=== PATIENT | female | born 1965 | race Caucasian/White ===

== ENCOUNTER 2023-09-08 14:18 | Outpatient (OUT) | payer OTHER, SELFPAY ==
--- NOTE | 2023-09-08 14:20 | US_ITS ---
The [address] [address] Patient Name: ALYSON HERMAN MRN: [id number] date: 1965 Sex: F Assigned Patient Location: [facility] Current Patient Location: [facility] Accession/Order Number: [id number] Exam Date: 09/08/2023 14:20 Report Date: 09/08/2023 15:23 At the request of: SONIA BARDALES Procedure: US pelvis transvaginal EXAMINATION: US pelvis transvaginal HISTORY: POST MENOPAUSAL BLEEDING, FIBROID COMPARISON: No relevant comparison available. TECHNIQUE: Transabdominal and/or transvaginal sonographic examination was performed as indicated by examination type. FINDINGS: UTERUS: Enlarged heterogeneous uterus with suspected mass/leiomyoma involving the majority of the uterus, approximately 11 x 9 x 7 cm. Uterus size: 15.4 x 6.9 x 10.5 cm ENDOMETRIUM: Hypoechoic heterogeneous area may represent endometrium or part of the uterine mass, approximately 28 mm in thickness. RIGHT OVARY: Not seen. LEFT OVARY: Not seen. CUL-DE-SAC: Unremarkable. No significant free fluid. BLADDER: Unremarkable. OTHER: None. US/US pelvis transvaginal IMPRESSION: 1. Enlarged heterogeneous uterus which appears to contain a large mass versus leiomyoma. It is uncertain whether the endometrium is completely obscured or there is abnormal endometrial thickening ([address] abdomen and pelvis with IV and oral contrast for further evaluation. Electronically authenticated by: DIEGO TYLER Date: 09/08/2023 15:23
== END 2023-09-08 14:19 | disposition home or self-care (01) ==
LOC: NOMS 14:19
PROVIDERS: PCP Family Medicine; Visit Provider Obstetrics & Gynecology
DX: N95.0 Postmenopausal bleeding (principal); D25.9 Leiomyoma of uterus, unspecified
CPT/HCPCS: 76830

== ENCOUNTER 2023-09-19 08:44 | Outpatient (OUT) | payer OTHER, SELFPAY ==
--- NOTE | 2023-09-19 08:50 | ECG_ITS ---
The [facility] Test Date: 2023-09-19 Pat Name: Samara Boyer Department: Room: - Gender: Female Differential Specialist: : 1965 Requested By: SONIA BARDALES Order Number: [id number] Reading MD: OMAR GARCIA Measurements Intervals [place] Rate: 63 P: 50 CO: 193 QRS: -18 QRSD: 86 T: -4 QT: 388 QTc: 398 Interpretive Statements SINUS RHYTHM No previous ECG available for comparison Electronically Signed On 09-20-2023 7:45:42 EST by OMAR GARCIA
--- OUTSIDE RECORDS SUMMARY | 2023-09-19 08:50 | XMS_ITS | CCD ---
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 Name Role Phone Nadir Albarado II Unavailable MD Nadir Albarado II Attending Provider NO FAMILY, PHYSICIAN Primary Care Provider Unava ilable Tina Pascual Unavailable Kaylen Gómez Unavailable Belkis Mejia Unavailable Jesu Cano Unavailable Gladis Fortune MD Primary Care Provider MD Nadir Albarado II Attending Provider MD Gladis Fortune Primary Care Provider [phone] Jesu Cano Admitting Unavailable Jesu Cano Attending Unavailable Gladis Fortune Primary [facility] Unavailable Nadir Albarado II Admitting UnavailNadir Arvizu II Attending [facility]availGladis [facility] Un[facility] GLADIS FORTUNE Attending Unavailable GLADIS FORTUNE Referring Unavailable ULISES JACOBSEN Attending Unavailable SONIA BENDER Attending Unavailable GLADIS FORTUNE Attending Unavailable Allergies Allergy Classification Reported Allergen(s) Allergy Type Date of Onset Reaction(s) Facility (5 sources) tiZANidine Drug Allergy 01-15-2023 Swelling [facility] Medications Current Medications Medication Drug Class(es) Dates Sig (Normalized) Sig (Original) 0.5 ML tirzepatide 5 MG/ML Auto-Injector [Mounjaro] (10 sources) Start: 01-30-2023 Mounjaro 2.5 MG/0.5ML as directed Subcutaneous weekly for 28 days Jan, Active acetaminophen 500 mg oral capsule (20 sources) Start: 09-02-2023 take 1 capsule by mouth every six hours as needed Acetaminophen Active 1 CAP PO Every 6 hours September 02, 2023 12:00am FreeTextSi capsule as needed Orally every 6 hrs; Note: Source Status: Taking; Provider: Rachael Nails ( ) take 1 capsule by mouth every si x hours Acetaminophen 500 MG 1 capsule as needed Orally every 6 hrs Active [id number] actuat albuterol 0.09 mg/actuat metered dose inhaler (19 sources) beta2-Adrenergic Agonist Start: 07-16-2022 take 2 puff(s) by inhalation every four hours as needed Albuterol Sulfate HFA 108 (90 Base) MCG/ACT 2 puffs as needed Inhalation every 4 hrs Jun, Active Start: 07-16-2022 take 2 puff(s) by in halation every four hours as needed Albuterol Sulfate HFA 108 (90 Base) MCG/ACT 2 puffs as needed Inhalation every 4 hrs Jun, Active Start: 07-16-2022 take 2 puff(s) by in halation every four hours as needed Albuterol Sulfate HFA 108 (90 Base) MCG/ACT 2 puffs as needed Inhalation every 4 hrs Jun, Active brimonidine tartrate 2 mg/ml ophthalmic solution (1 source) alpha-Adrenergic Agonist Start: 09-02-2023 take 1 drop(s) into the eye(s) every eight hours Brimonidine Active 1 DROPS EYE-BOTH Every 8 hours September 02, 2023 12:00am cyclobenzaprine hydrochloride 10 mg oral tablet (2 sources) Muscle Relaxant take 1 tablet by mouth every twenty-four hours Cyclobenzaprine HCl 10 MG 1 tablet at bedtime as needed Orally Once a day Active 24 hr diclofenac sodium 100 mg extended release oral tablet (20 sources) Nonsteroidal Anti-inflammatory Drug Start: 09-02-2023 take 100 mg by mouth once daily Diclofenac Sodium Active 100 MG PO Daily September 02, 2023 12:00am Start: 01-13-2023 diclofenac sod ium 1 % gel Diclofenac Sodiu m 1 % apply 1-2 grams to affected area Externally Four times a day for 30 days Active Diclofenac Sodiu m 1 % APPLY 1 TO 2 GRAMS TO AFFECTED AREA 4 TO 5 TIMES DAILY for 30 Active Diclofenac Activ e Voltaren 1 % Patrick ly 1-2 grams to the affected area Externally 4-5x's a day for 30 days Active Fish Oils (20 sources) Fish Oil Active hydroCHLOROthiazide 25 mg / triamterene 37.5 mg oral capsule (6 sources) Potassium-sparing Diuretic, Thiazide Diuretic Start: take 1 capsule by mouth once daily Triamterene-Hydr ochlorothiazid Active 1 CAP PO Daily September 02, 2023 12:00am Start: 04-09-2023 End: 10-06-2023 take 1 tablet by mouth in the morning triamterene-hydrochlorothiazide (Maxzide -25) 37.5-25 MG tablet Indications: Essential hypertension (CMS/HCC) Take 1 tablet by mouth in the morning. 90 tablet 1 04/09/2023 10/06/2023 Active ibuprofen 600 mg oral tablet (2 sources) Nonsteroidal Anti-inflammatory Drug take 1 tablet by mouth three times daily at mealtime as needed Ibuprofen 600 MG 1 tablet with food or milk as needed Orally Three times a day Active latanoprost 0.05 mg/ml ophthalmic solution (20 sources) Prostaglandin Analog take 1 drop(s) into the eye(s) once daily at bedtime latanoprost (Xalatan) 0.005 % ophthalmic solution INSTILL 1 DROP IN BOTH EYES EVERY DAY AT BEDTIME 0 Active Latanoprost 0.00 5 % Ophthalmic for 25 Days Glaucoma Active Latanoprost 0.00 5 % Ophthalmic for 25 Days Glaucoma Active levothyroxine sodium 0.1 mg oral tablet (20 sources) l-Thyroxine Start: 07-01-2023 take 1 tablet by mouth before mealtime levothyroxine (Synthroid, Levoxyl) 100 MCG tablet Indications: Hypothyroidism, unspecified type (CMS/HCC) TAKE 1 TABLET BY MOUTH IN THE MORNING BEFORE MEALS 90 tablet 1 07/01/2023 Active take 1 tablet by zuly th once daily in the morning Levothyroxine Sodium 100 MCG 1 tablet in the morning on an empty stomach Orally Once a day Active lisinopril 10 mg oral tablet (20 sources) Angiotensin Converting Enzyme Inhibitor Start: 04-09-2023 End: 10-06-2023 take 1 tablet by mouth in the morning lisinopril 10 MG tablet Indications: Essential hypertension (CMS/HCC) Take 1 tablet (10 mg) by mouth in the morning. 90 tablet 1 04/09/2023 10/06/2023 Active loratadine 10 mg oral tablet (20 sources) Start: 03-31-2023 take 1 tablet by mouth once daily as needed loratadine (Claritin) 10 MG tablet Indications: Allergic rhinitis due to other allergic trigger, unspecified seasonality TAKE 1 TABLET BY MOUTH EVERY DAY NEEDED 90 tablet 3 03/31/2023 Active meclofenamate 100 mg oral capsule (5 sources) Start: 09-02-2023 take 100 mg by mouth every six hours Meclofenamate Active 100 MG PO Every 6 hours September 02, 2023 12:00am Start: 08-27-2023 End: 09-03-2023 take 1 capsule by mouth every eight hours meclofenamate (Meclomen) 100 MG capsule Indications: DUB (dysfunctional uterine bleeding) Take 1 capsule (100 mg) by mouth every 8 (eight) hours for 7 days Stop the medication when bleeding stops. 21 capsule 0 08/27/2023 09/03/2023 Active megestrol acetate 20 mg oral tablet (5 sources) Progestin Start: 08-13-2023 take 1 tablet by mouth twice daily, then take 2 tablets by mouth twice daily, then take 1 tablet by mouth once daily megestrol (Megace) 20 MG tablet Indications: DUB (dysfunctional uterine bleeding) Take 1 tablet (20 mg total) by mouth 2 (two) times a day. Take 2 tablets BID x3 days and then 1 tab po daily 30 tablet 0 08/13/2023 Active meloxicam 15 mg oral tablet (20 sources) Nonsteroidal Anti-inflammatory Drug Start: 03-12-2022 take 1 tablet by mouth once daily Meloxicam Active 15 MG PO Daily September 02, 2023 12:00am FreeTextSi tablet Orally Once a day; Note: Source Status: Taking; Refills: 3; Qty: 30 Tablet; Provider: Per Fragoso 24 hr metFORMIN hydrochloride 500 mg extended release oral tablet (20 sources) Biguanide Start: 09-02-2023 take 1 tablet by mouth once daily at mealtime Metformin Active 500 MG PO Daily 90 September 02, 2023 2:48pm FreeTextSig: TAKE 1 TABLET BY MOUTH EVERY EVENING WITH A MEAL; Note: Source Status: Start; Refills: 0; Qty: 90 Tablet; Provider: Rachael Nails ( ) Start: 09-02-2023 End: 09-02-2023 take 1 tablet by mouth once daily at mealtime Metformin Discontinued 500 MG PO Daily September 02, 2023 2:47pm September 02, 2023 2:49pm FreeTextSig: TAKE 1 TABLET BY MOUTH EVERY EVENING WITH A MEAL; Note: Source Status: Start; Refills: 0; Qty: 90 Tablet; Provider: Rachael Nails ( ) Start: 11-20-2022 take 1 tablet by zuly th every twenty-four hours at mealtime metFORMIN XR (Glucophage-XR) 500 MG 24 hr tablet Take 500 mg by mouth in the evening. Take with meals. 0 11/20/2022 Active metFORMIN HCl ER 500 MG TAKE 1 TABLET BY MOUTH EVERY EVENING WITH A MEAL Orally Once a day for 90 days Active 24 hr metoprolol succinate 25 mg extended release oral tablet (20 sources) beta-Adrenergic Seun Start: 09-02-2023 take 25 mg by mouth once daily Metoprolol Succinate Active 25 MG PO Daily September 02, 2023 12:00am Start: 12-31-2022 End: 12-31-2023 take 1 tablet by mouth every twenty-four hours at bedtime metoprolol succinate XL (Toprol-XL) 25 MG 24 hr tablet Indications: Benign essential hypertension (CMS/HCC) Take 1 tablet (25 mg) by mouth at bedtime. 90 tablet 3 12/31/2022 12/31/2023 Active Metoprolol Succi xiomy Active mounjaro 2.5 mg/0.5ml solution pen-injector (1 source) Start: 01-30-2023 Mounjaro 2.5 MG/0.5ML as directed Subcutaneous weekly Jan, Active [place] 6-Vrx-Sgr-Fish Oil (Fish Oil) 1,000 mg (120 mg-180 mg) capsule (1 source) Start: 09-02-2023 take 1 capsule by mouth once daily [place] 6-Bvu-Jzo-Fish Oil (Fish Oil) 1,000 mg (120 mg-180 mg) capsule Active 1 CAP PO Daily September 02, 2023 12:00am semaglutide 3 mg oral tablet (3 sources) Start: 10-30-2022 Rybelsus 3 MG as directed Orally Oct, Active Tirzepatide (1 source) Start: 09-02-2023 inject 1 mg by subcutaneous injection every week Tirzepatide (Mounjaro) 2.5 mg/0.5 mL pen injector Active MG SUBCUT every week September 02, 2023 12:00am FreeTextSig: as directed Subcutaneous weekly; Note: Source Status: Continue; Provider: Rachael Alvarado Tirzepatide (Mounjaro) 2.5 MG/0.5ML solution pen-injector (5 sources) Tirzepatide (Mounjaro) 2.5 MG/0.5ML solution pen-injector Inject 2.5 mg under the skin every 7 (seven) days 0 Active Triamterene (19 sources) Potassium-spar ing Diuretic Triamterene Active Completed/Discontinued Medications Medication Drug Class(es) Dates Sig (Normalized) Sig (Original) methylPREDNISolone 4 mg oral tablet (5 sources) Corticosteroid Start: 2 methylPREDNISolone 4 MG as directed Orally Once a day for 6 days Jun, Not-Taking triamcinolone acetonide 40 mg/ml injectable suspension (20 sources) Corticosteroid Start: 2 Kenalog-40 Apr, 120 mg Problems Active Problems Problem Classification Problem Date Documented Date Episodic/Chronic Adjustment disorders (5 sources) Grief finding; Translations: [Adjustment disorder with depressed mood] Onset: 01-08-2023 01-08-2023 Chronic Administrative/social admission (1 source) Persons encountering health services in other specified circumstances Episodic Benign neoplasm of uterus (2 sources) Uterine leiomyoma; Translations: [Leiomyoma of uterus, unspecified] 09-02-2023 Episodic Chronic obstructive pulmonary disease and bronchiectasis (1 source) Bronchitis, not specified as acute or chronic Episodic Coma; stupor; and brain damage (20 sources) Excessive daytime sleepiness - normal night sleep; Translations: [Somnolence] Episodic Diabetes mellitus without complication (10 sources) Prediabetes; Translations: [Impaired fasting glucose] Episodic Disorders of lipid metabolism (20 sources) Pure hypercholesterolemia; Translations: [Pure hypercholesterolemia, unspecified] Onset: 01-08-2023 Chronic Diverticulosis and diverticulitis (5 sources) Diverticular disease; Translations: [Diverticulosis of intestine, part unspecified, without perforation or abscess without bleeding] Onset: 01-08-2023 01-08-2023 Chronic Essential hypertension (6 sources) Essential hypertension; Translations: [Essential (primary) hypertension] Onset: 01-08-2023 01-08-2023 Chronic Headache; including migraine (5 sources) Migraine; Translations: [Migraine, unspecified, not intractable, without status migrainosus] Onset: 01-08-2023 01-08-2023 Chronic Joint disorders and dislocations; trauma-related (5 sources) Derangement of right knee; Translations: [Unspecified internal derangement of right knee] Onset: 01-08-2023 01-08-2023 Chronic Menopausal disorders (2 sources) Postmenopausal bleeding; Translations: [Postmenopausal bleeding] 09-02-2023 Chronic Osteoarthritis (20 sources) Osteoarthritis of right knee joint; Translations: [Unilateral primary osteoarthritis, right knee] Onset: 09-02-2023 Chronic Other aftercare (5 sources) 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 Episodic Other circulatory disease (2 sources) Elevated blood-pressure reading, without diagnosis of hypertension Episodic Other diseases of kidney and ureters (2 sources) Disorder of kidney and ureter, unspecified Episodic Other female genital disorders (4 sources) Abnormal uterine bleeding; Translations: [Other specified abnormal uterine and vaginal bleeding] 08-27-2023 Chronic Other non-traumatic joint disorders (2 sources) Pain in right knee Onset: 03-12-2022 Resolved: 03-12-2022 Episodic Other nutritional; endocrine; and metabolic disorders (20 sources) Obesity; Translations: [Obesity, unspecified] 09-02-2023 Chronic Other nutritional; endocrine; and metabolic disorders (20 sources) Morbid obesity; Translations: [Morbid (severe) obesity due to excess calories] Onset: 01-08-2023 01-08-2023 Chronic Other nutritional; endocrine; and metabolic disorders (6 sources) Obesity, unspecified Chronic Other nutritional; endocrine; and metabolic disorders (2 sources) Morbid (severe) obesity due to excess calories Chronic Other nutritional; endocrine; and metabolic disorders (10 sources) Body mass index (BMI) 45.0-49.9, adult Chronic Other nutritional; endocrine; and metabolic disorders (20 sources) Body mass index 40+ - severely obese; Translations: [Body mass index (BMI) 45.0-49.9, adult] 09-02-2023 Chronic Other nutritional; endocrine; and metabolic disorders (5 sources) Disorder of carbohydrate metabolism; Translations: [Other disorders of intestinal carbohydrate absorption] Onset: 01-08-2023 01-08-2023 Chronic Other nutritional; endocrine; and metabolic disorders (2 sources) Body mass index (BMI) 40.0-44.9, adult; Translations: [Body Mass Index 40.0-44.9, adult] Onset: 09-02-2023 09-02-2023 Chronic Other upper respiratory disease (5 sources) Allergic rhinitis; Translations: [Allergic rhinitis, unspecified] Onset: 01-08-2023 01-08-2023 Chronic Other upper respiratory disease (1 source) Seasonal allergy; Translations: [Other seasonal allergic rhinitis] 09-02-2023 Chronic Spondylosis; intervertebral disc disorders; other back problems (5 sources) Inflammation of sacroiliac joint; Translations: [Sacroiliitis, not elsewhere classified] Onset: 01-08-2023 01-08-2023 Chronic Thyroid disorders (6 sources) Hypothyroidism; Translations: [Hypothyroidism, unspecified] Onset: 01-08-2023 01-08-2023 Chronic Unclassified (1 source) Prediabetes; Translations: [Prediabetes] Onset: 09-02-2023 Unclassified (1 source) Dietary counseling and surveillance; Translations: [Dietary counseling and surveillance] Onset: 07-07-2023 Past or Other Problems Problem Classification Problem Date Documented Date Episodic/Chronic Other nervous system disorders (5 sources) Abnormal gait; Translations: [Unspecified abnormalities of gait and mobility] Onset: 01-08-2023 01-08-2023 Episodic Other nervous system disorders (5 sources) Poor balance; Translations: [Other abnormalities of gait and mobility] Onset: 01-08-2023 01-08-2023 Episodic Unclassified (1 source) Cough R05.9 Viral infection (1 source) COVID-19 Results Test Name Value Interpretation Reference Range Facility US PELVIC COMPLETE W/ TVon 0 07-22-2023 US PELVIC COMPLETE W/ TV EXAMINATION: US PELVIC COMPLETE W/ TV HISTORY: Abnormal uterine bleeding. Postmenopausal bleeding. TECHNIQUE: Transabdominal and transvaginal ultrasound evaluation of the pelvis was performed. COMPARISON: None available FINDINGS: The examination is limited secondary to the patient's body habitus, inability to fill bladder, and bowel gas. The uterus measures 11.9 x 6.9 x 4.3 cm. There there are 2 areas of altered echogenicity within the uterus measuring 2.6 x 2.5 x 1.4 cm in 9.5 x 7.7 x 6.6 cm that likely represent fibroids. The endometrium is not visualized. Neither ovary is visualized. No definitive adnexal mass. There is no significant free fluid in the pelvis. IMPRESSION: Findings of the uterus most likely representing fibroids. Endometrium is nonvisualized. Neither ovary is visualized. ELECTRONICALLY SIGNED BY: Nadir Dove, DO Normal Not Available COVID/FLU/RSV RT-PCRon 07-16 SARS-CoV-2 (COVID-19) RNA [place]+probe Ql (Unsp spec) Positive [facility] Other COVID/FLU/RSV RT-PCR Negative [facility] Other CT Knee Right w/o Contraston 12-12-2021 CT Knee Right w/o Contrast HISTORY: Right knee sprain for 2 weeks. Unable to weight-bear. Tibial plateau fracture. TECHNIQUE: Multiple contiguous axial images were obtained of the right knee without contrast . Multiplanar reformats were obtained. All CT scans at this facility use dose modulation, iterative reconstruction, and/or weight based dosing when appropriate to reduce radiation dose to as low as reasonably achievable. COMPARISON: Radiographs of the knee 12/10/2021 FINDINGS: No acute fracture. Tricompartmental osteoarthritis most significantly involving the lateral and patellofemoral compartments where the osteoarthritis is advanced. Lateral patellar subluxation. There are a few small loose bodies, the largest which measures approximately 6 mm and is located along the anterior margin of the anterior tibial plateau. The visualized myotendinous structures appear intact by CT. IMPRESSION: No acute fracture. Advanced knee osteoarthritis. Report reported and signed by NADIR DOVE on 12/13/2021 1358 Normal [facility] XR Knee Complete Right*on XR Knee Complete Right* HISTORY: Twisting injury. Difficulty straightening the knee. Severe pain. COMPARISON: 03/15/2021 RESULT: No acute fracture. No dislocation. Joint compartment osteoarthritis with large osteophytes. Severe patellofemoral narrowing. Probably severe lateral compartment narrowing also. Possible joint body anteriorly, unchanged. Small joint effusion. Soft tissues unremarkable. No other significant abnormality. IMPRESSION: No acute osseous findings. Osteoarthritis, advanced in the patellofemoral and lateral compartments, similar to prior. Report reported and signed by Hitesh Navarro on 12/10/2021 1340 Normal [facility] Comprehensive Metabolic P[facility] 11-30-2021 Albumin [Mass/Vol] 4.2 g/dL Normal 3.6-5.1 [facility] Comment on above: Performed By: #### F T4, LIPD, TSH, CMP #### [facility] [address], [place] [id number] Albumin/Globulin [Mass ratio] 1.6 {ratio} Normal 1.0-2.5 [facility] Comment on above: Performed By: #### F T4, LIPD, TSH, CMP #### [facility] [address], [place] [id number] ALP [Catalytic activity/Vol] 72 U/L Normal 35-119 [facility] Comment on above: Performed By: #### F T4, LIPD, TSH, CMP #### [facility] [address], [place] [id number] ALT [Catalytic activity/Vol] 9 U/L Normal 6-33 [facility] Comment on above: Result Comment: 06/20 Female reference range changed. Performed By: #### F T4, LIPD, TSH, CMP #### [facility] [address], [place] [id number] Anion gap [Moles/Vol] 16 mmol/L Normal 12-20 [facility] Comment on above: Result Comment: Effe ctive 07/26/2019 reference range changed. Performed By: #### F T4, LIPD, TSH, CMP #### [facility] [address], [place] [id number] AST [Catalytic activity/Vol] 12 U/L Normal 9-34 [facility] Comment on above: Performed By: #### F T4, LIPD, TSH, CMP #### [facility] [address], [place] [id number] BUN/CREA 21 Ratio Normal 6-22 [facility] Comment on above: Performed By: #### F T4, LIPD, TSH, CMP #### [facility] [address], [place] [id number] Calcium [Mass/Vol] 9.4 mg/dL Normal 8.6-10.2 [facility] Comment on above: Performed By: #### F T4, LIPD, TSH, CMP #### [facility] [address], [place] [id number] Chloride [Moles/Vol] 104 mmol/L Normal 98-107 [facility] Comment on above: Performed By: #### F T4, LIPD, TSH, CMP #### [facility] [address], [place] [id number] CO2 [Moles/Vol] 22 mmol/L Normal 20-31 [facility] Comment on above: Performed By: #### F T4, LIPD, TSH, CMP #### [facility] [address], [place] [id number] Creatinine [Mass/Vol] 1.0 mg/dL Normal 0.6-1.4 [facility] Comment on above: Performed By: #### F T4, LIPD, TSH, CMP #### [facility] [address], [place] [id number] eGFRAA 67 mL/min/1.73m2 Normal >60 [facility] Comment on above: Performed By: #### F T4, LIPD, TSH, CMP #### [facility] [address], [place] [id number] eGFRNAA 56 mL/min/1.73m2 Low >60 [facility] Comment on above: Performed By: #### F T4, LIPD, TSH, CMP #### [facility] [address], [place] [id number] Globulin (S) [Mass/Vol] 2.6 g/dL Normal 1.9-3.7 [facility] Comment on above: Performed By: #### F T4, LIPD, TSH, CMP #### [facility] [address], [place] [id number] Glucose [Mass/Vol] 96 mg/dL Normal 65-99 [facility] [place] [employer] Comment on above: Result Comment: For FASTING Glucose --- ADA reference ranges: Normal 65-99 mg/dl Prediabetes 100-125 Diabetes >/= 126 Performed By: #### F T4, LIPD, TSH, CMP #### [facility] [address], [place] [id number] Potassium [Moles/Vol] 4.8 mmol/L Normal 3.5-5.5 [facility] [employer] Comment on above: Performed By: #### F T4, LIPD, TSH, CMP #### [facility] [address], [place] [id number] Protein [Mass/Vol] 6.8 g/dL Normal 6.1-8.1 [place] [employer] Comment on above: Performed By: #### F T4, LIPD, TSH, CMP #### [facility] [address], [place] [id number] Sodium [Moles/Vol] 138 mmol/L Normal 135-146 [facility] [place] [employer] Comment on above: Performed By: #### F T4, LIPD, TSH, CMP #### [facility] [address], [place] [id number] TBIL <0.3 Normal [facility] [employer] Comment on above: Performed By: #### F T4, LIPD, TSH, CMP #### [facility] [address], [place] [id number] Urea nitrogen [Mass/Vol] 22 mg/dL Normal 7-25 [facility] [employer] Comment on above: Performed By: #### F T4, LIPD, TSH, CMP #### [facility] [address], [place] [id number] Free T4on 11-30-2021 Free T4 [Mass/Vol] 1.42 ng/dL Normal 0.80-1.80 [place] [employer] Comment on above: Performed By: #### F T4, LIPD, TSH, CMP #### [facility] [address], [place] [id number] Hemoglobin A1Con 11-30-2021 EAG 119.76 Normal [facility] Special[facility] Comment on above: Performed By: #### A 1C #### [facility] [address], [place] [id number] HbA1c (Bld) [Mass fraction] 5.8 % Normal 4.0-6.0 [facility] [employer] Comment on above: Performed By: #### A 1C #### [facility] [address], [place] [id number] Lipid Panelon 11-30-2021 Cholesterol [Mass/Vol] 228 mg/dL High 125-200 [facility] [employer] Comment on above: Result Comment: Low risk < 200mg/dL Borderline risk 201-239 mg/dl High risk > or equal to 240 Performed By: #### F T4, LIPD, TSH, CMP #### [facility] [address], [place] [id number] Cholesterol in HDL [Mass/Vol] 56 mg/dL Normal >40 [facility] [employer] Comment on above: Result Comment: High Cardiovascular Risk HDL <40 mg/dL Low Cardiovascular Risk HDL > or equal to 60 mg/dl Performed By: #### F T4, LIPD, TSH, CMP #### [facility] [address], [place] [id number] Cholesterol in LDL [Mass/Vol] 118 mg/dL Normal [facility] [employer] Comment on above: Result Comment: LDL ATP III CLASSIFICATION LDL less than 100 mg/dl Optimal LDL 100-129 mg/dl Near or above optimal LDL 130-159 Borderline high LDL 160-189 High LDL greater than 189 mg/dl Very High Performed By: #### F T4, LIPD, TSH, CMP #### [facility] [address], [place] [id number] Cholesterol in VLDL [Mass/Vol] 54 mg/dL Normal [facility] [employer] Comment on above: Performed By: #### F T4, LIPD, TSH, CMP #### [facility] [address], [place] [id number] Cholesterol.total/ Cholesterol in HDL [Mass ratio] 4 {ratio} Normal [facility] [employer] Comment on above: Performed By: #### F T4, LIPD, TSH, CMP #### [facility] [address], [place] [id number] Triglyceride [Mass/Vol] 269 mg/dL High 30-150 [facility] [employer] Comment on above: Result Comment: TRIG ATPIII CLASSIFICATIONS TRIG less than 150 mg/dl Normal TRIG 150-199 mg/dl Borderline High TRIG 200-500 mg/dl High TRIG greather than 500 mg/dl Very High Performed By: #### F T4, LIPD, TSH, CMP #### [facility] [address], [place] [id number] TSHon 11-30-2021 TSH 4.120 uIU/mL Normal 0.400-4.500 [facility] What Job Titles Mean Comment on above: Performed By: #### F T4, LIPD, TSH, CMP #### [facility] [address], [place] [id number] SCREENING MAMMOGRAM W/CASI, BILATERAL*on 09-17-2021 SCREENING MAMMOGRAM W/CASI, BILATERAL* CLINICAL HISTORY: Screening Mammogram COMPARISON: Dating back to September 14, 2020, September 13, 2019 TECHNIQUE: 2D and 3D Tomosynthesis of the right and left breasts was performed. FINDINGS: Breast composition demonstrates scattered fibroglandular densities. Overall appearance is stable. No suspicious microcalcifications, asymmetry, architectural distortion, or associated features are present. Typically benign calcifications. IMPRESSION: BIRADS 2: Benign mammogram Board Certified Radiologist. Accredited by the ACR and FDA. MAMMOGRAPHY IS VERY IMPORTANT TO YOUR HEALTH. THE CURRENT [employer] GUIDELINES RECOMMENDS ANNUAL MAMMOGRAPHY BEGINNING AT AGE 38 THIS FACILITY USES A REMINDER SYSTEM TO ENSURE ALL PATIENTS RECEIVE REMINDER NOTIFICATIONS AT THE APPROPRIATE TIME BASED ON THE RECOMMENDATIONS OF THIS EXAM. Report reported and signed by Jaspal Lund on 09/17/2021 1042 Normal [facility] What Job Titles Mean Vital Signs Date Time Vital Sign Value Performing Clinician Facility 09-02-2023 14:01-0500 Body height 154.94 cm MD Gladis Fortune Work Phone: [facility] 09-02-2023 14:01-0500 Body mass index (BMI) [Ratio] 44.2 kg/m2 MD Gladis Fortune Work Phone: [facility] 09-02-2023 14:01-0500 Body weight 106.25 kg MD Gladis Fortune Work Phone: [facility] 09-02-2023 14:01-0500 Diastolic blood pressure 74 mm[Hg] MD Gladis Fortune Work Phone: [facility] 09-02-2023 14:01-0500 Heart rate 73 /min MD Gladis Fortune Work Phone: [facility] 09-02-2023 14:01-0500 Respiratory rate 18 /min MD Gladis Fortune Work Phone: [facility] 09-02-2023 14:01-0500 SaO2% (BldA) [Mass fraction] 100 % MD Gladis Fortune Work Phone: [facility] 09-02-2023 14:01-0500 Systolic blood pressure 108 mm[Hg] MD Gladis Fortune Work Phone: [facility] 09-02-2023 10:54-0500 Body mass index (BMI) [Ratio] 45.1 kg/m2 Sonia Yulia DO Work Phone: [facility] 09-02-2023 10:54-0500 Body weight 106.5 kg Sonia Yulia DO Work Phone: [facility] 09-02-2023 10:54-0500 Diastolic blood pressure 74 mm[Hg] Sonia Yulia DO Work Phone: [facility] 09-02-2023 10:54-0500 Systolic blood pressure 116 mm[Hg] Sonia Yulia DO Work Phone: [facility] 07-07-2023 11:30-0500 Body height 154.94 cm Jesu Cano Other [facility] 07-07-2023 11:30-0500 Body mass index (BMI) [Ratio] 44.04 kg/m2 Jesu Cano Other [address] Other 07-07-2023 11:30-0500 Body weight 105.73 kg Jesu Cano Other [facility] 07-07-2023 11:30-0500 Diastolic blood pressure 87 mm[Hg] Jesu Cano Other [facility] 07-07-2023 11:30-0500 Respiratory rate 18 /min Jesu Cano Other [address] Other 07-07-2023 11:30-0500 SaO2% (BldA) [Mass fraction] 99 % Jesu Cano Other [address] Other 07-07-2023 11:30-0500 Systolic blood pressure 139 mm[Hg] Jesu Cano Other [facility] 06-05-2023 10:45-0500 Body height 154.94 cm Jesu Cano Other [facility] 06-05-2023 10:45-0500 Body mass index (BMI) [Ratio] 44.96 kg/m2 Jesu Cano Other [address] Other 06-05-2023 10:45-0500 Body weight 107.96 kg Jesu Cano Other [address] [facility] [address] Other 06-05-2023 10:45-0500 Body weight 107.95 kg MD Gladis Fortune Work Phone: [facility] 06-05-2023 10:45-0500 Diastolic blood pressure 81 mm[Hg] Jesu Cano Other [facility] 06-05-2023 10:45-0500 Respiratory rate 18 /min Jesu Cano Other [address] Other 06-05-2023 10:45-0500 SaO2% (BldA) [Mass fraction] 100 % Jesu Floresdiff Other [address] Other 06-05-2023 10:45-0500 Systolic blood pressure 120 mm[Hg] Jesu Floresdiff Other [facility] 05-27-2023 10:15-0500 Body height 154.94 cm Tina Fitt Other [address] Other 05-27-2023 10:15-0500 Body mass index (BMI) [Ratio] 45.32 kg/m2 Tina Fitt Other [address] Other 05-27-2023 10:15-0500 Body weight 108.82 kg [email or web address] Other [address] Other 04-23-2023 09:45-0400 Body height 154.94 cm Jesu Floresdiff Other [address] Other 04-23-2023 09:45-0400 Body mass index (BMI) [Ratio] 46.04 kg/m2 Jesu Floresdiff Other [address] Other 04-23-2023 09:45-0400 Body weight 110.54 kg Jesu Rachael Other [address] Other 04-23-2023 09:45-0400 Diastolic blood pressure 84 mm[Hg] Jesumalaika Cano Other [address] Other 04-23-2023 09:45-0400 Respiratory rate 18 /min Jesu Rachael Other [address] Other 04-23-2023 09:45-0400 SaO2% (BldA) [Mass fraction] 98 % Jesu Floresdiff Other [address] Other 04-23-2023 09:45-0400 Systolic blood pressure 146 mm[Hg] Jesu Rachael Other [address] [facility] [address] Other 03-25-2023 10:15-0400 Body height 154.94 cm Tina Fitt Other [address] Other 03-25-2023 10:15-0400 Body mass index (BMI) [Ratio] 46.72 kg/m2 Tina Fitt Other [address] [facility] [address] Other 03-25-2023 10:15-0400 Body weight 112.18 kg Tina Fitt Other [address] [facility] [address] Other 03-10-2023 11:15-0400 Body height 154.94 cm Jesu Floresdiff Other [address] Other 03-10-2023 11:15-0400 Body mass index (BMI) [Ratio] 47.21 kg/m2 Jesu Floresdiff Other [address] Other 03-10-2023 11:15-0400 Body weight 113.35 kg Jesu Cano Other [address] Other 03-10-2023 11:15-0400 Diastolic blood pressure 75 mm[Hg] Jesu Cano Other [address] [facility] [address] Other 03-10-2023 11:15-0400 Respiratory rate 18 /min Jesumalaika Cano Other [address] Other 03-10-2023 11:15-0400 SaO2% (BldA) [Mass fraction] 100 % Jesu Cano Other [address] Other 03-10-2023 11:15-0400 Systolic blood pressure 126 mm[Hg] Jesu Cano Other [address] Other 11-28-2022 11:15-0400 Body height 154.94 cm [employer] Other [address] Other 11-28-2022 11:15-0400 Body mass index (BMI) [Ratio] 47.04 kg/m2 Nadir Gusmanisle II Other [address] Other 11-28-2022 11:15-0400 Body weight 112.95 kg Nadir Gusmanisle II Other [address] Other 10-30-2022 12:00-0400 Body height 154.94 cm Jesu Cano Other [address] Other 10-30-2022 12:00-0400 Body mass index (BMI) [Ratio] 48.18 kg/m2 Jesu Cano Other [address] Other 10-30-2022 12:00-0400 Body weight 115.67 kg Jesu Cano Other [address] Other 10-30-2022 12:00-0400 Diastolic blood pressure 79 mm[Hg] Jesu Cano Other [address] Other 10-30-2022 12:00-0400 Respiratory rate 18 /min Jesu Cano Other [address] Other 10-30-2022 12:00-0400 SaO2% (BldA) [Mass fraction] 100 % Jesu Cano Other [address] Other 10-30-2022 12:00-0400 Systolic blood pressure 119 mm[Hg] Jesu Cano Other [address] [facility] [address] Other 09-18-2022 10:30-0500 Body height 154.94 cm Kaylen Missler Other [address] Other 09-18-2022 10:30-0500 Body mass index (BMI) [Ratio] 48.71 kg/m2 Kaylen Missler Other [address] Other 09-18-2022 10:30-0500 Body weight 116.94 kg Kaylen Missler Other [address] Other 09-18-2022 10:30-0500 Diastolic blood pressure 85 mm[Hg] Kaylen Missler Other [address] Other 09-18-2022 10:30-0500 Respiratory rate 18 /min Kaylen Missler Other [address] Other 09-18-2022 10:30-0500 SaO2% (BldA) [Mass fraction] 99 % Kaylen Missler Other [address] Other 09-18-2022 10:30-0500 Systolic blood pressure 124 mm[Hg] Kaylen Missler Other [address] Other 08-08-2022 10:15-0500 Body height 154.94 cm Nadir Brooklin II Other [address] Other 08-08-2022 10:15-0500 Body mass index (BMI) [Ratio] 49.12 kg/m2 Nadir Gaminole II Other [address] Other 08-08-2022 10:15-0500 Body weight 117.94 kg Nadir Gusmanisle II Other [address] Other 07-16-2022 16:15-0500 Body height 154.94 cm Belkis Mejia Other [address] Other 07-16-2022 16:15-0500 Body mass index (BMI) [Ratio] 49.31 kg/m2 Belkis Camposault Other [address] Other 07-16-2022 16:15-0500 Body temperature 98.9 [degF] Belkis Camposault Other [address] Other 07-16-2022 16:15-0500 Body weight 118.39 kg Belkis Camposault Other [address] Other 07-16-2022 16:15-0500 Respiratory rate 18 /min Belkis Camposault Other [address] Other 07-16-2022 16:15-0500 SaO2% (BldA) [Mass fraction] 99 % Belkis Camposault Other [address] Other 06-12-2022 10:30-0500 Body height 154.94 cm Kaylen Gómez Other [address] Other 06-12-2022 10:30-0500 Body mass index (BMI) [Ratio] 51.03 kg/m2 Kaylen Missler Other [address] Other 06-12-2022 10:30-0500 Body weight 122.52 kg Kaylen Missler Other [address] Other 06-12-2022 10:30-0500 Diastolic blood pressure 83 mm[Hg] Kaylen Missler Other [address] Other 06-12-2022 10:30-0500 Respiratory rate 18 /min Kaylen Missler Other [address] Other 06-12-2022 10:30-0500 SaO2% (BldA) [Mass fraction] 96 % Kaylen Missler Other [address] Other 06-12-2022 10:30-0500 Systolic blood pressure 141 mm[Hg] Kaylen Missler Other [address] Other 05-08-2022 10:45-0400 Body height 154.94 cm Nadir Brooklin II Other [address] Other 05-08-2022 10:45-0400 Body mass index (BMI) [Ratio] 50.44 kg/m2 Nadir Brooklin II Other [address] Other 05-08-2022 10:45-0400 Body weight 121.11 kg Nadir Brooklin II Other [address] Other Encounters Encounter Date Encounter Type Care Provider Facility Start: 09-10-2023 End: 09-10-2023 ambulatory GLADIS Le WONDERLY Not Available Start: 09-02-2023 ambulatory Jesu Cano Facili ty:[facility] Start: 09-02-2023 End: 09-02-2023 ambulatory MD Gladis Fortune Work Phone: [facility] Work Phone: Start: 09-02-2023 End: 09-02-2023 Patient encounter procedure MD Gladis Fortune [facility] Phone[facility] Work Phone: Start: 09-02-2023 End: 09-02-2023 ambulatory SONIA BENDER Not Available Start: 09-02-2023 End: 09-02-2023 Office outpatient visit 15 minutes Sonia Yulia DO Work Phone: [facility] Comment on above: DUB (dysfunctional u terine bleeding); Postmenopausal bleeding; Uterine leiomyoma, unspecified location Start: 08-27-2023 Orders Only Ulises L Marisa o CNM Work Phone: [facility] Comment on above: DUB (dysfunctional u terine bleeding) (Primary Dx) Start: 08-25-2023 Telephone encounter Ulises L Marisao CNM Work Phone: [facility] Start: 08-13-2023 End: 08-14-2023 ambulatory ULISES L FLORO Not Available Start: 07-22-2023 End: 07-23-2023 ambulatory GLADIS Le WONDERLY Not Available Start: 07-17-2023 Non-patient / Non-visit MD Lynette Fortune Work Phone: [facility] Work Phone: Start: 07-17-2023 End: 07-17-2023 ambulatory GLADIS Le WONDERLY Not Available Start: 07-07-2023 End: 07-07-2023 ambulatory Nadir Albarado II [facility] Other Start: 07-07-2023 Follow-up encounter Jesu garcia [facility] Start: 07-07-2023 Registered Recurring MD Gladis aragon Work Phone: [facility] Work Phone: Start: 07-07-2023 End: 07-07-2023 Patient encounter procedure MD Gladis Fortune Work Phone: [facility] Work Phone: Start: 06-10-2023 End: 06-10-2023 ambulatory Nadir Brooklin II Other [address] Other Start: 06-10-2023 Telephone encounter Nadir Per II [facility] Start: 06-09-2023 End: 06-09-2023 ambulatory Nadir Brooklin II Other [address] Other Start: 06-09-2023 Telephone encounter Nadir Brooklin II [facility] Start: 06-05-2023 End: 06-05-2023 ambulatory Jesu Cano Other [address] Other Start: 06-05-2023 Follow-up encounter Jesu garcia [facility] Start: 06-05-2023 End: 06-05-2023 Patient encounter procedure MD Gladis Thornton Phone: [facility] Work Phone: Start: 05-27-2023 ([facility] RD FU) [facility] F/ U [employer] Tina Pascual [facility] Start: 05-27-2023 End: 05-27-2023 ambulatory Tina Pascual Other [address] Other Start: 05-07-2023 End: 05-07-2023 ambulatory Nadir Per II Other [address] Other Start: 05-07-2023 Telephone encounter Nadir Brooklin II [facility] Start: 04-23-2023 End: 04-23-2023 ambulatory Jesu Cano Other [address] Other Start: 04-23-2023 Follow-up encounter Jesu Floresdirekha [facility] Start: 03-25-2023 ([facility] RD FU) [facility] F/ U [employer] Tina Pascual [facility] Start: 03-25-2023 End: 03-25-2023 ambulatory Tina Pascual Other [address] Other Start: 03-10-2023 End: 03-10-2023 ambulatory Jesu Floresdiff Other [address] Other Start: 03-10-2023 Follow-up encounter Jesu Barnes [facility] Start: 02-04-2023 End: 02-04-2023 ambulatory Tina Pascual Other [address] Other Start: 02-04-2023 IBT for Obesity subQ 15 min (Max charge 2 units) Tina Pascual [facility] Start: 02-03-2023 End: 02-03-2023 ambulatory Nadir Brooklin II Other [address] Other Start: 02-03-2023 Telephone encounter Nadir Brooklin II [facility] Start: 11-28-2022 End: 11-28-2022 ambulatory Nadir Brooklin II Other [address] Other Start: 11-28-2022 Office outpatient vi sit 25 minutes Nadir Brooklin II [facility] Start: 11-08-2022 End: 11-08-2022 ambulatory Nadir Per II Other [address] Other Start: 11-08-2022 Telephone encounter Nadir Brooklin II [facility] Start: 10-30-2022 End: 10-30-2022 ambulatory Jesu Cano Other [address] Other Start: 10-30-2022 Follow-up encounter Jesu garcia [facility] Start: 09-24-2022 End: 09-24-2022 ambulatory Tina Fitt Other [address] Other Start: 09-24-2022 IBT for Obesity init ial 30 min (Max charge 2 units) Tina Wongt [facility] Start: 09-19-2022 End: 09-19-2022 ambulatory Kaylen Gómez Other [address] Other Start: 09-19-2022 Telephone encounter Kaylen Gómez [facility] Start: 09-18-2022 (FCCCWMNF/U) Weight Management f/u Kaylen Gómez [facility] Start: 09-18-2022 End: 09-18-2022 ambulatory Kaylen Gómez Other [address] Other Start: 08-08-2022 End: 08-08-2022 ambulatory Nadir Brooklin II Other [address] Other Start: 08-08-2022 Office outpatient vi sit 25 minutes Nadir Per II [facility] Start: 07-16-2022 End: 07-16-2022 ambulatory Belkiskatlin Mejia Other [address] Other Start: 07-16-2022 Office outpatient vi sit 15 minutes Belkis Jackie [facility] Start: 06-12-2022 End: 06-12-2022 ambulatory Kaylen Gómez Other [address] Other Start: 06-12-2022 Nutrition therapy Kaylen Gómez [facility] Start: 05-23-2022 End: 05-23-2022 ambulatory Tina Fitt Other [address] Other Start: 05-23-2022 Telephone encounter [facility] Start: 05-08-2022 End: 05-08-2022 ambulatory Nadir Per II Other [address] Other Start: 05-08-2022 Office outpatient vi sit 25 minutes Nadir Brooklin II [facility] Start: 04-11-2022 End: 04-11-2022 ambulatory Nadir Brooklin II Other [address] Other Start: 04-11-2022 Telephone encounter Nadir Brooklin II [facility] Start: 03-12-2022 End: 03-12-2022 ambulatory Nadir Per II Other [address] Other Start: 03-12-2022 Office outpatient ne w 45 minutes Nadir Brooklin II [facility] Start: 03-12-2022 End: 03-12-2022 Patient encounter procedure MD Nadir Albarado II Work Phone: [facility] Procedures Date Procedure Procedure Detail Performing Clinician Start: 10-02-2022 Mammography Ulises Fl natty CNM Work Phone: Start: 03-12-2022 X-ray of right knee MD Nadir Albarado II Work Phone: Start: 01-19-2015 Colonoscopy Ulises Fl natty CNM Work Phone: Plan of Treatment Date Care Activity Detail Author Start: 01-19-2025 Screening for malign ant neoplasm of colon [facility] Start: 05-28-2024 Screening for malign ant neoplasm of cervix [facility] Start: 10-03-2023 Screening for malign ant neoplasm of breast Mammogram [facility] Start: 09-08-2023 End: 09-08-2023 Professional / ancillary services management 09/08/2023 2:30 PM EST Ancillary Procedure [facility] [address] [place] [address] [place] [address] [facility] Start: 09-02-2023 End: 09-02-2024 US for US PELVIS-TRANSVAG IF INDICATED Imaging Routine Postmenopausal bleeding Uterine leiomyoma, unspecified location Expected: 09/02/2023 (Approximate), Expires: 09/02/2024 [facility] Work Phone: Comment on above: Expected: 09/02/2023 (Approximate), Expires: 09/02/2024 Start: 10-14-1984 Screening for malign ant neoplasm of cervix Pap Smear [facility] Start: 1965 Screening for malign ant neoplasm of colon [facility] Immunizations Immunization Date Immunization Notes Care Provider Fa [facility] 07-17-2023 influenza, injectabl e, quadrivalent, preservative free Ulises Floro CNM Work Phone: [facility] 04-15-2022 influenza, injectabl e, quadrivalent, preservative free Ulises Floro CNM Work Phone: [facility] 06-11-2021 influenza, injectabl e, quadrivalent, contains preservative Ulises Floro CNM Work Phone: [facility] 06-08-2020 influenza, injectabl e, quadrivalent, contains preservative Ulises Floro CNM Work Phone: [facility] 11-26-2019 tetanus and diphther ia toxoids, adsorbed, preservative free, for adult use (5 Lf of tetanus toxoid and 2 Lf of diphtheria toxoid) Ulises Floro CNM Work Phone: [facility] 05-28-2019 influenza, injectabl e, quadrivalent, preservative free Ulises Floro CNM Work Phone: [facility] 05-26-2018 influenza, injectabl e, quadrivalent, preservative free Ulises Floro CNM Work Phone: [facility] 06-04-2017 influenza, injectabl e, quadrivalent, preservative free Ulises Floro CNM Work Phone: [facility] 05-22-2016 influenza, injectabl e, quadrivalent, preservative free Ulises Floro CNM Work Phone: [facility] 05-23-2015 seasonal influenza, intradermal, preservative free Ulises Floro CNM Work Phone: [facility] 06-01-2014 influenza, injectabl e, quadrivalent, preservative free Ulises Floro CNM Work Phone: [facility] 09-18-2009 tetanus toxoid, redu isaías diphtheria toxoid, and acellular pertussis vaccine, adsorbed Ulises Floro CNM Work Phone: [facility] Payers Date Payer Category Payer Private Health Insurance [facility] [id number] 2022-Present [address] [address] [place] [address] [id number] 2022 Self-pay 2022 Unknown [id number] 1965 Unknown [id number] 1965 Unknown [id number] 1965 Unknown [id number] 1963 Unknown [id number] 1965 Unknown [id number] Unknown [id number] Unknown [id number] [id number] Unknown [id number] Social History Date Type Detail Facility Start: 07-17-2023 End: 08-13-2023 Sex Assigned At [facility] Work Phone: Start: 1965 Sex Assigned At Female [facility] Start: 07-17-2023 Tobacco smoking stat us TXIS Never smoked tobacco [facility] Start: 07-17-2023 Tobacco use and exposure Smokeless tobacco non-user [facility] Start: 08-13-2023 End: 09-02-2023 Alcohol intake Current drinker of alcohol (finding) [facility] Start: 07-17-2023 End: 08-13-2023 History of Social function [facility] How often to you hav e a drink containing alcohol? Monthly or less [facility] How many standard drinks containing alcohol do you have on a typical day? 1 or 2 [facility] How often do you hav e 6 or more drinks on 1 occasion? Never [facility] Start: 12-23-2022 Alcohol Comment 1 or 2 drinks monthly or less; caffeine intake: 1-[address] [facility] Start: 1965 Sex Assigned At Not on file N [facility] Clinical Notes 03-12-2022 to 09-02-2023 Kiki Mak, SARINA - 09/02/2023 10:20 AM ESTTelephone Encounter - Ulises Jacobsen [facility] - 08/27/2023 1:20 PM ESTTelephone Encounter - Ulises Jacobsen, [facility] - 08/27/2023 1:20 PM EST Note Date & Type Note Facility 09-02-2023 History of Presen t illness Narrative Reason for Appointment: Patient ID: Alyson Boyer is a 57 y.o. female who presents for Vaginal Bleeding Patient presents today for Acute Visit appointment. Current Medications: has a current medication list which includes the following prescription(s): diclofenac sodium, latanoprost, levothyroxine, lisinopril, loratadine, meclofenamate, megestrol, meloxicam, metformin xr, metoprolol succinate xl, mounjaro, and triamterene-hydrochlorothiazide. Medical History: Active Ambulatory Problems Diagnosis Date Noted Allergic rhinitis 01/08/2023 Dyslipidemia (CMS/HCC) 01/08/2023 Diverticulosis 01/08/2023 Essential hypertension ([facility]) 01/08/2023 Gait disturbance 01/08/2023 Glucose intolerance 01/08/2023 Grief ([facility]) 01/08/2023 Hypertriglyceridemia ([facility]) 01/08/2023 Hypothyroidism ([facility]) 01/08/2023 Migraine without status migrainosus, not intractable ([facility]) 01/08/2023 Morbid obesity ([facility]) 01/08/2023 Internal derangement of right knee 01/08/2023 Poor balance 01/08/2023 Sacroiliitis ([facility]) 01/08/2023 Resolved Ambulatory Problems Diagnosis Date Noted No Resolved Ambulatory Problems Past Medical History: Diagnosis Date HTN (hypertension) ([facility]) Irregular menstruation Lumbar pain Simple varicose veins Family History Problem Relation Name Age of Onset Hypertension Mother Heart disease Mother Other (hay fever) Mother Heart failure Mother Tuberculosis Mother Heart failure Brother at age 64 - alcoholic Social History Tobacco Use Smoking status: Never Smokeless tobacco: Never Vaping Use Vaping Use: Never used Substance Use Topics Alcohol use: Yes Comment: 1 or 2 drinks monthly or less; caffeine intake: 1-2 per week Drug use: Never Past Surgical History: Procedure Laterality Date COLONOSCOPY 01/2015 Dr. Flower ELBOW SURGERY Right KNEE SURGERY Left Allergies Allergen Reactions Tizanidine Hcl Swelling Tongue swelling, redness Review of Systems: Review of Systems Constitutional: Negative. HENT: Negative. Eyes: Negative. Respiratory: Negative. Cardiovascular: Negative. Gastrointestinal: Negative. Genitourinary: Negative. Musculoskeletal: Negative. Skin: Negative. Neurological: Negative. All other systems reviewed and are negative. Hematological: Negative. Endocrine: Negative. Allergic/Immunologic: Negative. Objective Physical Exam Constitutional: Appearance: Normal appearance. She is well-developed. Cardiovascular: Rate and Rhythm: Normal rate and regular rhythm. Pulmonary: Effort: Pulmonary effort is normal. Breath sounds: Normal breath sounds. Abdominal: General: Bowel sounds are normal. There is no distension. Palpations: Abdomen is soft. Tenderness: There is no abdominal tenderness. There is no guarding or rebound. Musculoskeletal: General: No swelling. Normal range of motion. Right lower leg: No edema. Left lower leg: No edema. Neurological: Mental Status: She is alert and oriented to person, place, and time. Skin: General: Skin is warm and dry. Psychiatric: Mood and Affect: Mood normal. Behavior: Behavior normal. Vitals and nursing note reviewed. Exam conducted with a linesperson present. Vitals: Estimated body mass index is 45.1 kg/m as calculated from the following: Height as of 09/19/22: 5' 0.5 . Weight as of this encounter: 234 lb 12.8 oz. BP: 116/74 No LMP recorded. Assessment/Plan Encounter Diagnoses Name Primary? DUB (dysfunctional uterine bleeding) Postmenopausal bleeding Uterine leiomyoma, unspecified location Pt presents as referral for postmenopausal bleeding and uterine fibroid. Pt to be scheduled for D&C hysteroscopy. Pt given ultrasound order for transvaginal. Pt had ultrasound with Dominique endometrium not visualized. Pt to return for preop. Documented by Kiki aMk LPN on behalf of: Sonia Bender DO documented in this encounter [facility] 08-27-2023 Telephone encount er Note I called and spoke with patient and she understands the meclofenamate is short term as I don't want it to interfere with her blood pressure medication. I placed referral for Dr Workman office and patient will wait to receive a call from his office. [facility] 08-27-2023 Miscellaneous Notes Formattin g of this note might be different from the original. I called and spoke with patient and she understands the meclofenamate is short term as I don't want it to interfere with her blood pressure medication. I placed referral for Dr Workman office and patient will wait to receive a call from his office. Pt states whichever med you gave her for her bleeding is not helping at all. Asking if you can try something else. [facility] pharmacy please. documented in this encounter [facility] 08-27-2023 History of Presen t illness Narrative Meclofenamate sent to pharmacy. Patient states she can take NSAIDS. She is on BP medication so I told her this is only short term use. She is awaiting a call from Dr Bender's office for a consult appt. For DUB and fibroids. I sent message to Dr Bender's office to call patient when they could and get her in with him., documented in this encounter [facility] 08-25-2023 Telephone encount er Note Pt states whichever med you gave her for her bleeding is not helping at all. Asking if you can try something else. [facility] pharmacy please. [facility] 07-07-2023 Evaluation note Encounter Date Diagnosis Assessment Notes Jun, Prediabetes (ICD-10 - R73.03) Jun, Body mass index (BMI) of 45.0-49.9 in adult (ICD-10 - Z68.42) Jun, Mixed hyperlipidemia (ICD-10 - E78.2) Jun, Arthritis of knee (ICD-10 - M19.90) Jun, Medication management (ICD-10 - Z79.899) [facility] 12-18-2023 Evaluation note* Author Jesu Cano [facility] Authored September 02, 2023 2:46pm Start weight: 270.1 lbs. she is down 35.7lbs. today with a weight of 233.1 lbs. She is up 1.3 lbs since her last visit on 07/07 Starting Date: 06-12-2022. GLP-1 start date 10/30/2022. GLP-1 start weight 255 pounds. She is down 20.6 lbs. she was originally on Rybelsus but is NOW on Mounjaro 2.5 mg samples. 1. Prediabetes with A1c in the past of 5.8-resolved now with A1c down to 5.4 and fasting blood sugar normal back to 98 on 2.5 mg Mounjaro samples. Her insurance does not cover GLP-1 agonist. She is doing much better with lifestyle change except for exercise and activity which she is limited by her right knee severe arthritis. She should continue first-line treatment with long- term healthy lifestyle change, decreased simple sweets and refined starches, increase exercise and activity and long-term weight loss. Continue metformin. Treat with GLP-1 agonist. Needs close long-term follow-up for this condition to prevent diabetes. 2. Obesity-improved since starting our program and taking 500 mg of metformin and Mounjaro 2.5 mg samples. She feels Mounjaro significantly decreases her cravings and gives her better food control. She cannot afford to pay for higher doses of a GLP-1 agonist. She should never skip a meal. She will continue to eat lean protein, vegetables and whole fruits. Unfortunately her insurance for [employer] does not cover weight loss medications. She could consider bariatric surgery. She needs to continue to lose weight to have her right knee surgery so she can get back to work. Her knee pain has already started to improve some but still debilitating since starting our program and having greater than a 10% weight loss. Her surgeon would like her to get down to 230 pounds to have the surgery and she is almost there. She should continue to working closely with our distiller and has made some significant healthy dietary changes. She should continue to treat with treat with long-term lifestyle changes of improved nutrition with following the plate method, increased exercise and activity, stress reduction, adequate sleep and behavioral modification versus short-term dieting. 3. Mixed hyperlipidemia-improved but still has triglycerides of 208 and HDL of 42. She should continue to treat with healthier eating, some exercise and weight loss. She will continue to treat with decreasing the simple sweets, added sugars, refined starches, and bad/added fats, increasing activity and exercise and continued long-term weight loss. 4. Severe OA of the knee requiring knee replacement. Improved some with our program. Her surgeon would like her to get down to at least 230 pounds before having her knee replaced, hopefully she has had an enough weight loss to have the surgery. Follow up with me in 8 weeks. New labs needed: Up-to-date. She will need a yearly B12 level in November on metformin. She is up-to-date regular metabolic blood work from 07/17/2023. She should continue regular yearly blood work with her PCP to follow-up her prediabetes and mixed hypercholesterolemia. [facility] Work Phone: [phone]) 255-774311-16-2023 Evaluation note* Encounter Date Diagnosis Assessment Notes Treatment Notes Treatment Clinical Notes May, Prediabetes (ICD-10 - R73.03) May, Body mass index (BMI ) of 45.0-49.9 in adult (ICD-10 - Z68.42) May, Mixed hyperlipidemia (ICD-10 - E78.2) May, Arthritis of knee (ICD-10 - M19.90) May, Medication managemen t (ICD-10 - Z79.899) [facility] Other 11-07-2023 Evaluation note* Encounter Date Diagnosis Assessment Notes Treatment Notes Treatment Clinical Notes May, Obesity (ICD-10 - E66.9) May, BMI 45.0-49.9, adult (ICD-10 - Z68.42) [facility] Other 10-04-2023 Evaluation note* Encounter Date Diagnosis Assessment Notes Treatment Notes Treatment Clinical Notes Apr, Prediabetes (ICD-10 - R73.03) Apr, Body mass index (BMI ) of 45.0-49.9 in adult (ICD-10 - Z68.42) Apr, Mixed hyperlipidemia (ICD-10 - E78.2) Apr, Arthritis of knee (ICD-10 - M19.90) Apr, Medication managemen t (ICD-10 - Z79.899) [facility] Other 09-05-2023 Evaluation note* Encounter Date Diagnosis Assessment Notes Treatment Notes Treatment Clinical Notes Mar, Obesity (ICD-10 - E66.9) Mar, BMI 45.0-49.9, adult (ICD-10 - Z68.42) Mar, Other Summary of Visi t: (A) Saturated fat in red meat (pork sausage vs chicken sausage) (B) Importance of pairing protein with carbohydrates (C) Eating more frequently to avoid extreme hunger (D) Discussed different types of sweeteners; patient to try Monk Fruit Patient set the following goals: 1) Have a source of protein with fruits (ex: cottage cheese, brazilian yogurt, 1/4 cup nuts, chicken, etc.) [facility] Other 08-21-2023 Evaluation note* Encounter Date Diagnosis Assessment Notes Treatment Notes Treatment Clinical Notes Feb, Prediabetes (ICD-10 - R73.03) Feb, Body mass index (BMI ) of 45.0-49.9 in adult (ICD-10 - Z68.42) Feb, Mixed hyperlipidemia (ICD-10 - E78.2) Feb, Arthritis of knee (ICD-10 - M19.90) Feb, Medication managemen t (ICD-10 - Z79.899) [facility] 07-18-2023 Evaluation note* Encounter Date Diagnosis Assessment Notes Treatment Notes Treatment Clinical Notes Jan, Obesity (ICD-10 - E66.9) Jan, BMI 45.0-49.9, adult (ICD-10 - Z68.42) Jan, Other Summary of Visi t: (A) Importance of fiber for health (B) Lower carb breakfast ideas (C) Provided various heart healthy recipes Patient set the following goals: 1) Try breakast recipes discussed at visit today; always include a source of protein with breakfast [facility] Other 05-11-2023 Evaluation note* Encounter Date Diagnosis Assessment Notes Treatment Notes Treatment Clinical Notes November, Primary osteoarthritis of right knee (ICD-10 - M17.11) November, BMI 45.0-49.9, adult (ICD-10 - Z68.42) November, Other We have discuss ed her weight loss at length today. I think she is doing a phenomenal job and I congratulated her on her efforts. I encouraged her to continue with her weight loss journey as we discussed further weight loss I think at this point she has shown great determination to work on her weight loss and we should attempt to compromise on her weight and accept the increased risk of complications. Patient and her sister completely agreed. We ultimately agreed that if she can get down to a weight of 230 pounds which would be a BMI of 43.5 we can consider her arthroplasty surgery. I did take time to explain that this would mean she is still at a significant increased risk of complications because her BMI is above 40 but those risks have decreased significantly compared to a BMI above 50 and a BMI above 45. Patient and her sister completely agreed. Patient will continue working with Dr. Cano on weight loss. In regards to the Zilretta injection, we will reach out to our foundation to see if they be willing to cover a one-time Zilretta injection to try and get the patient some pain relief as she continues to work on her weight loss journey. I will see her back in the office for her Zilretta injection if it is improved. Patient was upset that she did not get a phone call from our office stating that her insurance denied the Zilretta injection. We will make sure to follow-up with her regarding the foundation and whether or not is approved or not approved we will make sure that she gets a call either way. [facility] Other 04-12-2023 Evaluation note* Encounter Date Diagnosis Assessment Notes Treatment Notes Treatment Clinical Notes Oct, Prediabetes (ICD-10 - R73.03) Oct, Body mass index (BMI ) of 45.0-49.9 in adult (ICD-10 - Z68.42) Oct, Mixed hyperlipidemia (ICD-10 - E78.2) Oct, Arthritis of knee (ICD-10 - M19.90) Oct, Medication managemen t (ICD-10 - Z79.899) [facility] Other 03-07-2023 Evaluation note* Encounter Date Diagnosis Assessment Notes Treatment Notes Treatment Clinical Notes Sep, Obesity (ICD-10 - E66.9) Sep, BMI 45.0-49.9, adult (ICD-10 - Z68.42) Sep, Other Summary of Visi t: (A) Plate method education (B) How carbohydrates influence blood sugar levels (C) Importance of pairing carbohydrate foods with protein/fiber (D) Flexibility with goals and small/manageable changes Other Info: -Patient feeling very hungry and overwhelmed with which foods she feels she is not allowed to eat. Discussed incorporating some foods back in in a balanced way to prevent burnout. Reports only eating foods from a specific list she was given at a previous appointment. -Did not get through entire plate method education due to patient with other questions and concerns to address. She inquired about sodium and carbohydrate recommendations and likes clear numbers -Reports following the plate method but has actually been doing 1/2 the plate of protein instead of non starchy vegetables-Frequently skips meals -Inquired about how much sodium she should be consuming Patient set the following goals: Daily sodium goal: less than 1500 mgLook for less than 140 mg per serving on snacksRinse off canned beans to reduce sodium Carbohydrate Goals:15-20 g per [id number] g per meal If you are having a carbohydrate food, make sure to pair it with some protein and fiberFruit + Protein Shake If going more than 3-4 hours between meals, have a snack with protein + 1 other category from plateSample Day Brainstormed w/ Patient: Breakfast (10 AM): Protein shake + fruit Lunch (2PM): Salad with all plate categories (see salad handout; can use beans and nuts as protein if tired of chicken)Dinner (5 PM): chicken + broccoli + potato (using the plate method)Snack (7PM): see 16 snack ideas that have protein [facility] Other 03-01-2023 Evaluation note* Encounter Date Diagnosis Assessment Notes Treatment Notes Treatment Clinical Notes Sep, Obesity (ICD-10 - E66.9) Patient has multiple comorbidities related to obesity including hypertension, hypercholesterolem ia, prediabetes, arthritis, etc. patient's goal for weight loss is to reach a BMI of 40 or less to be able to undergo arthroscopic knee surgery. While she initially had a 12 pound weight loss on metformin and lifestyle change alone she is only down 0.8 pounds since our last visit. She seems to be doing things on the extreme end and depriving herself of pizza and at somewhat of a calorie deficit approach. Pt states she does not have much of an appetite lately. (I do have some concerns about some depression playing a role in this with her recent lifestyle change and losing her mother who she lives with) she is has eliminated tea soda and other sugary beverages for over a week now. She seems to have a moderate knowledge deficit of what and how to eat. She would strongly benefit from a one-on-one visit with the dietitian and frequent follow-ups. We discussed risk and benefit of being more aggressive with treatment and adding a GLP-1 agonist medication. Patient seems against injections at this time even after thorough review of demonstration pen and benefits and side effects to be aware of. While not first choice we did discuss the possibility of utilizing something like Adipex to help get her closer to her goal of BMI of 40 and be able to undergo her knee surgery and hopefully with some therapy and improvement in her pain she would be able to be more active and maintain her weight better. She again seems reluctant about the choices we discussed today. We will discuss at future follow-ups. Follow-up with Dr. Cano in 4 to 6 weeks. We risk and benefit of appetite suppression with her current loss of appetite recently. We will reassess at follow-up Sep, High blood pressure (not hypertension) (ICD-10 - R03.0) Blood pressure seems adequately controlled today. We will continue to monitor throughout patient's clinical course Sep, Arthritis of knee (ICD-10 - M19.90) Again patient's whole drive for weight loss is to be able to have orthopedic surgery for painful right knee. She continues use a cane daily for ambulation and was previously working at [employer] and has a goal to get back to work. Sep, Kidney dysfunction (ICD-10 - N28.9) Sep, Morbid obesity with body mass index (BMI) of 40.0 or higher (ICD-10 - E66.01) Sep, Daytime sleepiness (ICD-10 - R40.0) Sep, Hypercholesteremia (ICD-10 - E78.00) Sep, Prediabetes (ICD-10 - R73.03) We discussed the twofold benefit of medication for both weight loss and blood sugar improvement. Praised her for eliminating her sugary tea and soda at least for the last week. Reinforced the need to avoid these types of liquid sugar Sep, Encounter for weight management (ICD-10 - Z76.89) Sep, Impaired fasting glucose (ICD-10 - R73.01) [facility] Other 01-19-2023 Evaluation note* Encounter Date Diagnosis Assessment Notes Treatment Notes Treatment Clinical Notes Jul, Primary osteoarthritis of right knee (ICD-10 - M17.11) Jul, Other 1. We had a philippe g discussion with the patient today concerning their right knee osteoarthritis. The radiographs do show osteoarthritis of the knee. At this time the patient would like to avoid surgical intervention. We did discuss the risk and benefits of surgical versus nonoperative management. The patient would like to proceed with nonoperative management. We discussed that our options include injections, physical therapy, and the consistent use of anti-inflammatories. All 3 of these options, including their risks and benefits, were discussed at length with the patient. 2. Tylenol: Discussed taking Tylenol (acetaminophen). Recommended adjusting their dosing to 1000mg by mouth up to 3 times a day. 3. NSAIDs: Recommended continuing the meloxicam or Voltaren gel, I provided refills of these today. 4. Physical therapy: Discussed formal physical therapy and home regimen. Patient preferred no formal PT at this time. 5. Injections: Discussed injections as a treatment option. The patient has failed intra-articular steroids previously for their osteoarthritic knee pain. The patient has never received a Zilretta injection in the past. The risks and benefits of Zilretta injection were discussed; patient voiced their understanding and willingness to proceed with the injection. The patient is also aware the injection is given intra-articular. We will schedule their injection appointment once the patient receives insurance approval for the Zilretta injection. 6. BMI 49.1-recommend continuing working on weight loss with Dr. Cano and his weight loss management team. We again discussed that ideally she will need to be a BMI of 40 or below to proceed with a total knee replacement. [facility] Other 12-27-2022 Evaluation note* Encounter Date Diagnosis Assessment Notes Treatment Notes Treatment Clinical Notes Jun, Cough (ICD-10 - R05.9) Jun, COVID-19 (ICD-10 - U07.1) Today you tested positive for the COVID virus. This mean you need to follow all CDC quarantine guidelines found at [email or web address]. It is important to rest, increase fluids, and stay at home. Recommend contacting primary care provider and discussing best course of action if you have chronic health conditions. COVID POSITIVE education handout discharge instructions. given. Jun, Bronchitis (ICD-10 - J40) Take medications as directed. Rest and increase fluid intake. Take meds with food to prevent stomach upset. Use inhaler as needed for coughing spells and SOB. It is better to use inhaler a few times a day over the next 2-3 days. Follow up with primary care provider if symptoms do not improve with treatment plan, although it may take a few weeks for the cough to go away [facility] Other 11-23-2022 Evaluation note* Encounter Date Diagnosis Assessment Notes Treatment Notes Treatment Clinical Notes May, Obesity (ICD-10 - E66.9) Findings consistent with obesity. Patient understands that this increases risk of multiple comorbidities associated with weight gain especially if there is a genetic component. Discussed importance of adopting a healthier lifestyle including better diet choices as well as incorporating some type of activity and exercise In order to decrease or eliminate risk of impending diseases associated with excessive weight.. Treat with weight loss Discussed benefit of GLP-1 versus metformin. Patient is very against any injectable medications. Open to metformin for A1c if 5.8 and weight loss goals Encouraged to cut out soda and or sweetened Snapple tea finding alternatives Encouraged to incorporate the plate method into her meal set up 1-2 times a week Decrease amount of junk food available in house She would significantly benefit from basic education from the dietitian, appointment scheduled Highly encouraged use of greenhouse manager, patient seems opposed to this will readdress at future visit Encouraged to work on good sleep hygiene and cutting fluids 2 hours prior to bed to decrease nighttime awakenings to urinate May, High blood pressure (not hypertension) (ICD-10 - R03.0) Patient has history of hypertension. Blood pressure reading within normal limits/mildly elevated today. Treat with low-salt diet, decreased processed and restaurant foods, healthy lifestyle changes and achieve long-term weight loss. Encouraged to monitor outside of the office setting May, Arthritis of knee (ICD-10 - M19.90) Patient admits to arthritis pain pain likely secondary to increased weight. Treat with exercise incorporating low impact exercises or modifications as needed. Advised to that there are multiple different exercise programs available many that can be done within the home that required little to no impact. Encouraged swimming as feasible. Slowly increase activity over time to reach goal of 30 minutes most days of the week. Encouraged to take advantage of greenhouse manager available at [facility] that can help work around limitations. Discussed 1 pound weight loss equals 4 pounds of additional weight to the joints that is relieved May, Kidney dysfunction (ICD-10 - N28.9) Mild decrease in GFR observed on initial labs with GFR at 56. We will monitor May, Morbid obesity with body mass index (BMI) of 40.0 or higher (ICD-10 - E66.01) Patient would be a candidate for weight loss surgery. We did not address this in today's visit but could discuss at follow-up May, Daytime sleepiness (ICD-10 - R40.0) Encouraged good sleep hygiene by going to bed at approximately the same time each night and similar waking hours each day, not eating too close to bedtime, avoid excessive fluids and eating shortly before bed, turning off blue light on phone/computers, silencing notifications, etc. May, Hypercholesteremia (ICD-10 - E78.00) Discussed etiology of hyperlipidemia. Treat with decreasing the simple sweets, added sugars, refined starches and bad fats. Encouraged increased activity and exercise and continue long-term weight loss goals. May, Prediabetes (ICD-10 - R73.03) Patient meets criteria for prediabetes with A1c of 5.8 and elevated fasting glucose. First-line treatment with long-term healthy lifestyle change, decrease simple sweets and refined starches, increased exercise and activity and continue with long-term weight loss goals. Will need close long-term follow-up for this condition to prevent diabetes. Consider metformin or GLP-1 agonist. [facility] Other 10-19-2022 Evaluation note* Encounter Date Diagnosis Assessment Notes Treatment Notes Treatment Clinical Notes Apr, Primary osteoarthritis of right knee (ICD-10 - M17.11) Apr, Other 1. We had a philippe g discussion with the patient today concerning their right knee osteoarthritis. The radiographs do show osteoarthritis of the knee. At this time the patient would like to avoid surgical intervention. We did discuss the risk and benefits of surgical versus nonoperative management. The patient would like to proceed with nonoperative management. We discussed that our options include injections, physical therapy, and the consistent use of anti-inflammatories. All 3 of these options, including their risks and benefits, were discussed at length with the patient. 2. Tylenol: Discussed taking Tylenol (acetaminophen). Recommended adjusting their dosing to 1000mg by mouth up to 3 times a day. 3. NSAIDs: Refilled meloxicam and Voltaren gel today 4. Physical therapy: Discussed formal physical therapy and home regimen. Patient preferred no PT at this time. 5. Injections: Discussed injections as a treatment option. After consent was obtained, the right knee was injected with 3cc Kenalog and 7cc bupivicaine using sterile technique. Patient tolerated the injection well. 6. BMI 50-we discussed that in order to proceed with a knee arthroplasty surgery, which I think at some point she will need, we will need to work on her weight to get her below a BMI of 40. With a BMI above 40 she puts her self at significant increased risk of complications including infection, malalignment, and aseptic loosening of her components. Patient voiced her understanding of this and is in agreement with getting in touch with Dr. Cano. We sent the referral today. 7. Follow-up in [address] Other 09-22-2022 Evaluation note* Encounter Date Diagnosis Assessment Notes Treatment Notes Treatment Clinical Notes Mar, Acute pain of right knee (ICD-10 - M25.561) [facility] Other 08-23-2022 Evaluation note* Encounter Date Diagnosis Assessment Notes Treatment Notes Treatment Clinical Notes Feb, Acute pain of right knee (ICD-10 - M25.561) Feb, Other 1. We had a philippe g discussion with the patient today concerning their right knee osteoarthritis. The radiographs do show osteoarthritis of the knee. At this time the patient would like to avoid surgical intervention. We did discuss the risk and benefits of surgical versus nonoperative management. The patient would like to proceed with nonoperative management. We discussed that our options include injections, physical therapy, and the consistent use of anti-inflammatories. All 3 of these options, including their risks and benefits, were discussed at length with the patient. 2. Tylenol: Discussed taking Tylenol (acetaminophen). Recommended adjusting their dosing to 1000mg by mouth up to 3 times a day. 3. NSAIDs: Prescribed the patient 15 mg Mobic (meloxicam) to be taken by mouth daily. Also prescribed her Voltaren gel to be used 4-5 times a day 4. Physical therapy: Discussed formal physical therapy and home regimen. Patient preferred no formal PT at this time. 5. Injections: Discussed injections as a treatment option. However, patient is deathly afraid of needles and did not want to do an injection today. However I did inform her that if she does not get relief over these next several months with the above treatment then we may need to consider a intra-articular steroid injection 6. Follow up [address] Other Evaluation noteNo assessment information available [facility] Work Phone: Evaluation noteNo Information[facility]Can[facility] Other Evaluation note* Diagnosis DUB (dysfunctional uterine bleeding)- Primary Other disorder of menstruation and other abnormal bleeding from female genital tract documented in this encounter [facility]* Diagnosis DUB (dysfunctional uterine bleeding)- Primary Other disorder of menstruation and other abnormal bleeding from female genital tract documented in this encounter [facility] note* Diagnosis DUB (dysfunctional uterine bleeding) Other disorder of menstruation and other abnormal bleeding from female genital tract Postmenopausal bleeding Uterine leiomyoma, unspecified location documented in this encounter [facility] general Narrative - Reported* Type Description Date Medical History HTN Medical History hyperthyroidism Medical History seasonal allergies [facility] Other History general Narrative - Reported* Type Description Date Medical History HTN Medical History hyperthyroidism Medical History seasonal allergies Medical History Arthritis of right knee Surgical History Tendonitis of right elbow Surgical History Left knee cap repair Surgical History [place] teeth [facility] Other Hisrilj general Narrative - Reported* Type Description Date Medical History HTN Medical History hyperthyroidism Medical History seasonal allergies Medical History Arthritis of right knee Medical History Covid 2022 Surgical History Tendonitis of right elbow Surgical History Left knee cap repair Surgical History [place] teeth [facility] Other Summary Purpose Family History No Family History Records Found Relationship Condition Age at Onset Recorded Date/T carine brother Malignant neoplasm Unknown Heart disease Unknown Diabetes mellitus Unknown Family history of mental disorder Unknown Hypertension Unknown father Unknown Malignant neoplasm Unknown Not Specified Unknown sister Family history of mental disorder Unknown Advance Directives No Advanced Directives Records Found Advance Directive Response Recorded Date/ Time Advance Directives No March 12, 2022 1:47pm Advance Directive Response Recorded Date/ Time Advance Directives No March 12, 2022 12:47pm Chief Complaint and Reason for Visit Chief Complaint M25.561 Chief Complaint Wmn Obesity Reason for Visit BMI 40.0-44.9, adult Mixed hyperlipidemia Prediabetes Primary osteoarthritis of right knee Reason for Referral Specialty Diagnoses / Procedures Referred By Contjerson t Referred To Contact Obstetrics and Gynecology Diagnoses DUB (dysfunctional uterine bleeding) Procedures [place] OFFICE/OUTPATIENT NEW HIGH MDM 60 MINUTES Ulises Jacobsen CNM [address] [place] [address] Sonia Bender, [address] [place] [address] Referral ID Status Reason Start Date Expiration Date Visits Requested Visits Authorized [id number] Pending Review Specialty Services Required 08/27/2023 02/23/2024 1 1 Additional Source Comments INFORMATION SOURCE (unrecogn ized section and content) DATE CREATED AUTHOR 12/14/2021 [facility] dical Specialist DATE CREATED AUTHOR AUTHOR'S ORGANIZ ATION 09/05/2023 [facility] DATE CREATED AUTHOR AUTHOR'S ORGANIZ ATION 09/17/2023 [facility] dical Specialists EPIC REASON FOR VISIT (unrecogniz ed section and content) Reason Comments Vaginal Bleeding Care Teams (unrecognized sec tion and content) Team Status: Inactive Member Role Status Dates Nadir Albarado II, MD Attending Provider Active PHYSICIAN NO FAMILY Primary Care Provider Active Team Status: Active Member Role Status Dates PHYSICIAN NO FAMILY Primary Care Provider Active [employer] Relationship Specialty Start Date End Date Gladis Fortune MD [address] [place], [place] [id number] PCP - General Family Medicine 01/15/23 [employer] Relationship Specialty Start Date End Date Gladis Fortune MD [address] [facility] [place] [address] PCP - General Family Medicine 01/15/23 [employer] Work[employer] Relationship Specialty Start Date End Date Gladis Fortune MD [address] [facility] [place] [address] PCP - General Family Medicine 01/15/23 Team Status: Active Member Role Status Jayla Fortune MD Primary Care Provider Active Team Status: Inactive Member Role Status Dates Jesu Cano MD Attending Provider Active Start: June 05, 2023 End: June 05, 2023 Team Status: Inactive Member Role Status Dates Jesu Cano MD Attending Provider Active Start: July 07, 2023 End: July 07, 2023 Team Status: Active Member Role Status Jayla Albarado II, MD Attending Provider Active Start: July 07, 2023 Gladis Fortune MD Primary Care Provider Active Start: July 07, 2023 Team Status: Active Member Role Status Jayla Fortune MD Primary Care Provide r, Attending Provider Active Start: July 17, 2023 Team Status: Inactive Member Role Status Jayla Fortune MD Primary Care Provider Active Start: September 02, 2023 End: September 02, 2023 Jesu Cano MD Attending Provider Active Start: September 02, 2023 End: September 02, 2023 [employer] Work[employer] Relationship Specialty Start Date End Date Gladis Fortune MD [address] [facility] [place] [address] PCP - General Family Medicine 01/15/23 Goals (unrecognized section and content) Goals may be documented in a n alternate section FOR RECORDS PERTAINING TO PATIENTS WHO ARE OR HAVE BEEN ENROLLED IN A CHEMICAL DEPENDENCY/SUBSTANCEABUSE PROGRAM, SOME INFORMATION MAY BE OMITTED. This clinical summary was aggregated from multiple sources. Caution should be exercised in using it in the provision of clinical care. This summary normalizes information from multiple sources, and as a consequence, information in this document may materially change the coding, format and clinical context of patient data. In addition, data may be omitted in some cases. CLINICAL DECISIONS SHOULD BE BASED ON THE PRIMARY CLINICAL RECORDS. [facility]. provides no warranty or guarantee of the accuracy or completeness of information in this document.
--- NOTE | 2023-09-19 09:52 | PM.PRESUREVA ---
History of Present Illness History of Present Illness Chief complaint: Post menopausal bleeding Narrative: Patient presents for preadmission testing. The patient states she has postmenopausal bleeding. She states she believes it has slowed down considerably and she has no other complaints. She does state that she has a hard time getting around because she has chronic knee and back pain. She does ambulate with a cane. Review of Systems ROS Narrative REVIEW OF SYSTEMS: Negative except as stated in HPI, ten or more systems reviewed. Constitutional: No fever , chills, weakness ENT: No sore throat or epistaxis Cardiovascular: Chronic lower extremity edema; No chest pain or palpitations. Respiratory: No shortness of breath, cough, or wheezing Musculoskeletal: chronic joint pain and swelling Gastrointestinal: No abdominal pain, constipation, diarrhea, or vomiting Genitourinary: No dysuria or hematuria Neurological: No numbness, tingling, weakness, or headache Psychiatric: No mood changes [facility] Medical History (Updated 09/19/23 @ 09:37 by Catina Valenzuela NP) Menopause ?Z78.0 - Asymptomatic menopausal state (ICD-10) Back pain ?M54.9 - Dorsalgia, unspecified (ICD-10) Arthritis ?M19.90 - Unspecified osteoarthritis, unspecified site (ICD-10) Anemia ?D64.9 - Anemia, unspecified (ICD-10) Hypertension ?I10 - Essential (primary) hypertension (ICD-10) Extremity edema ?R60.0 - Localized edema (ICD-10) Migraine ?G43.909 - Migraine, unspecified, not intractable, without status migrainosus (ICD-10) Seasonal allergies ?J30.2 - Other seasonal allergic rhinitis (ICD-10) Heartburn ?R12 - Heartburn (ICD-10) High cholesterol ?E78.00 - Pure hypercholesterolemia, unspecified (ICD-10) Hypothyroidism ?E03.9 - Hypothyroidism, unspecified (ICD-10) Uterine leiomyoma ?D25.9 - Leiomyoma of uterus, unspecified (ICD-10) Post-menopausal bleeding ?N95.0 - Postmenopausal bleeding (ICD-10) Surgical History (Updated 09/19/23 @ 09:37 by Catina Valenzuela NP) H/O elbow surgery ?Z98.890 - Other specified postprocedural states (ICD-10) History of arthroscopy of knee ?Z98.890 - Other specified postprocedural states (ICD-10) History of colonoscopy ?Z98.890 - Other specified postprocedural states (ICD-10) Family History (Updated 09/19/23 @ 09:37 by Catina Valenzuela NP) Other Family history of Alzheimer's disease Family history of heart disease Family history of hypertension Social History (Updated 09/19/23 @ 09:20 by Catina Valenzuela NP) Within the past year, how often did you have a drink containing alcohol: 2-4 times a month Smoking status: Never smoker Non-prescribed substance use: denies use Highest level of school completed/degree received: high school graduate Meds Home Medications and Allergies Home Medications Medication Instructions Recorded Confirmed Type acetaminophen 500 mg capsule 500 mg PO Q6H PRN pain 09/19/23 09/19/23 History brimonidine 0.2 % eye drops 1 drp ophthalmic (eye) Q8H 09/19/23 09/19/23 History diclofenac sodium 100 mg 100 mg PO DAILY 09/19/23 09/19/23 History tablet,extended release 24 hr levothyroxine 100 mcg capsule 100 mcg PO DAILY 09/19/23 09/19/23 History lisinopril 10 mg tablet 10 mg PO DAILY 09/19/23 09/19/23 History loratadine 10 mg capsule 10 mg PO DAILY 09/19/23 09/19/23 History meloxicam 15 mg tablet 15 mg PO DAILY 09/19/23 09/19/23 History metformin 500 mg tablet 500 mg PO DAILY 09/19/23 09/19/23 History metoprolol tartrate 25 mg tablet 25 mg PO DAILY 09/19/23 09/19/23 History omega 8-idl-boj-fish oil 1,000 mg 1 cap PO DAILY 09/19/23 09/19/23 History (120 mg-180 mg) capsule (Fish Oil) tirzepatide 2.5 mg/0.5 mL 2.5 mg subcut QWEEK 09/19/23 09/19/23 History subcutaneous pen injector (Mounjaro) triamterene 37.5 1 cap PO DAILY 09/19/23 09/19/23 History mg-hydrochlorothiazide 25 mg capsule Allergies Allergy/AdvReac Type Severity Reaction Status Date / Time No Known Drug Allergies Allergy Verified 09/19/23 09:17 Exam Narrative Exam Narrative: Constitutional: Awake, alert, Appears uncomfortable, nontoxic, interactive, vital signs as charted Head: Normocephalic, atraumatic Neck: Supple, normal appearance, normal range of motion, no meningeal signs, no lymphadenopathy Respiratory: No respiratory distress, breath sounds clear, Dyspnea noted after ambulating from the waiting area Cardiovascular: Regular rate and rhythm, strong and regular heart tones Abdomen: Nontender, normal bowel sounds, soft, no CVA tenderness Musculoskeletal: Ambulates with an antalgic gait, 2+ pedal pitting edema bilaterally Skin: No rashes or induration, no lesions, only visible skin inspected Neuro: No neurological deficits, normal sensation Psychiatric: Oriented ?3, Flat affect Assessment and Plan Assessment and Plan (1) Uterine leiomyoma: (2) Post-menopausal bleeding: Plan D and C, hysteroscopy, possible Myosure scheduled with Dr. Bender 10/03/2023.
[2023-09-19 10:46] LABS: Anion Gap 11.5; BUN Creatinine Ratio 21.5; Carbon Dioxide 25.7 mmol/L (21.0-32.0); Chloride 104 mmol/L (98-107); Estimated GFR (African America 49 (>=60); Estimated GFR (Non-African Ame 40 (>=60); Glucose 97 mg/dL (74-106); Potassium 4.2 mmol/L (3.5-5.1); Sodium 137 mmol/L (136-145)
== END 2023-09-19 08:45 | disposition home or self-care (01) ==
LOC: PST 08:46
PROVIDERS: PCP Family Medicine; Visit Provider Obstetrics & Gynecology
DX: Z01.810 Encounter for preprocedural cardiovascular examination (principal); Z01.812 Encounter for preprocedural laboratory examination; Z01.818 Encounter for other preprocedural examination; N95.0 Postmenopausal bleeding; D25.9 Leiomyoma of uterus, unspecified
CPT/HCPCS: 80048; 93005; G0463

== ENCOUNTER 2023-10-06 06:15 | Day surgery (SDC) | payer OTHER, SELFPAY ==
[2023-09-19 09:37] VITALS: BP 122/80; PULSE 73; RESP 20; TEMP 36.3; O2SAT 98; BMI 44.0
--- OUTSIDE RECORDS SUMMARY | 2023-10-06 06:18 | XMS_ITS | CCD ---
Author Name Unknown Address [address] [place] [address] Organization [facility] Care Team Providers Care Rn Infusion Name Role Phone Nadir Albarado II Unavailable MD Nadir Albarado II Attending Provider NO FAMILY, PHYSICIAN Primary Care Provider Unava ilable Tina Pascual Unavailable Kaylen Gómez Unavailable Belkis Mejia Unavailable Jesu Cano Unavailable Gladis Fortune MD Primary Care Provider MD Nadir Albarado II Attending Provider [phone] MD Gladis Fortune Primary Care Provider [phone] Jesu Cano Admitting Unavailable Jesu Cano Attending Unavailable Gladis Fortune Primary [facility] Unavailable Nadir Albarado II Admitting UnavailNadir Arvizu II Attending UnavailGladis [facility] Unavailable GLADIS FORTUNE Attending Unavailable GLADIS [...] as needed Orally every 6 hrs Active [id number] actuat albuterol 0.09 mg/actuat metered dose [...] MG/0.5ML as directed Subcutaneous weekly Jan, Active [place] 4-Whm-Mtt-Fish Oil (Fish Oil) 1,000 mg (120 mg-180 mg) capsule (1 source) Start: 09-02-2023 take 1 capsule by mouth once daily [place] 5-Vmj-Ifm-Fish Oil (Fish Oil) 1,000 mg (120 mg-180 [...] 09-02-2023 Chronic Other aftercare (5 sources) 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 11-30-2021 Albumin [Mass/Vol] 4.2 g/dL Normal 3.6-5.1 [facility] Comment on above: Performed By: #### F T4, LIPD, TSH, CMP #### [facility] [address] [place], [place] [id number] Albumin/Globulin [Mass ratio] 1.6 {ratio} Normal 1.0-2.5 [facility] Comment on above: Performed By: #### F T4, LIPD, TSH, CMP #### [facility] [address] [place], [place] [id number] ALP [Catalytic activity/Vol] 72 U/L Normal 35-119 [facility] Comment on above: Performed By: #### F T4, LIPD, TSH, CMP #### [facility] [address] [place], [place] [id number] ALT [Catalytic activity/Vol] 9 U/L Normal 6-33 [facility] Comment on above: Result Comment: 06/20 Female reference range changed. Performed By: #### F T4, LIPD, TSH, CMP #### [facility] [address] [place], [place] [id number] Anion gap [Moles/Vol] 16 mmol/L Normal 12-20 [facility] Comment on above: Result Comment: Effe ctive 07/26/2019 reference range changed. Performed By: #### F T4, LIPD, TSH, CMP #### [facility] [address] [place], [place] [id number] AST [Catalytic activity/Vol] 12 U/L Normal 9-34 [facility] Comment on above: Performed By: #### F T4, LIPD, TSH, CMP #### [facility] [address] [place], [place] [id number] BUN/CREA 21 Ratio Normal 6-22 [facility] Comment on above: Performed By: #### F T4, LIPD, TSH, CMP #### [facility] [address] [place], [place] [id number] Calcium [Mass/Vol] 9.4 mg/dL Normal 8.6-10.2 [facility] Comment on above: Performed By: #### F T4, LIPD, TSH, CMP #### [facility] [address] [place], [place] [id number] Chloride [Moles/Vol] 104 mmol/L Normal 98-107 [facility] Comment on above: Performed By: #### F T4, LIPD, TSH, CMP #### [facility] [address] [place], [place] [id number] CO2 [Moles/Vol] 22 mmol/L Normal 20-31 [facility] Comment on above: Performed By: #### F T4, LIPD, TSH, CMP #### [facility] [address] [place], [place] [id number] Creatinine [Mass/Vol] 1.0 mg/dL Normal 0.6-1.4 [facility] Comment on above: Performed By: #### F T4, LIPD, TSH, CMP #### [facility] [address] [place], [place] [id number] eGFRAA 67 mL/min/1.73m2 Normal >60 [facility] Comment on above: Performed By: #### F T4, LIPD, TSH, CMP #### [facility] [address] [place], [place] [id number] eGFRNAA 56 mL/min/1.73m2 Low >60 [facility] Comment on above: Performed By: #### F T4, LIPD, TSH, CMP #### [facility] [address] [place], [place] [id number] Globulin (S) [Mass/Vol] 2.6 g/dL Normal 1.9-3.7 [facility] Comment on above: Performed By: #### F T4, LIPD, TSH, CMP #### [facility] [address] [place], [place] [id number] Glucose [Mass/Vol] 96 mg/dL Normal 65-99 [facility] [place] [facility] Comment on above: Result Comment: For FASTING Glucose --- ADA reference ranges: Normal 65-99 mg/dl Prediabetes 100-125 Diabetes >/= 126 Performed By: #### F T4, LIPD, TSH, CMP #### [facility] [address] [place], [place] [id number] Potassium [Moles/Vol] 4.8 mmol/L Normal 3.5-5.5 [facility] Comment on above: Performed By: #### F T4, LIPD, TSH, CMP #### [facility] [address] [place], [place] [id number] Protein [Mass/Vol] 6.8 g/dL Normal 6.1-8.1 [facility] Comment on above: Performed By: #### F T4, LIPD, TSH, CMP #### [facility] [address] [place], [place] [id number] Sodium [Moles/Vol] 138 mmol/L Normal 135-146 [facility] rn [place] [facility] Comment on above: Performed By: #### F T4, LIPD, TSH, CMP #### [facility] [address] [place], [place] [id number] TBIL <0.3 Normal [facility] Comment on above: Performed By: #### F T4, LIPD, TSH, CMP #### [facility] [address] [place], [place] [id number] Urea nitrogen [Mass/Vol] 22 mg/dL Normal 7-25 [facility] Comment on above: Performed By: #### F T4, LIPD, TSH, CMP #### [facility] [address] [place], [place] [id number] Free T4on 11-30-2021 Free T4 [Mass/Vol] 1.42 ng/dL Normal 0.80-1.80 [place] [facility] [place] [facility] Comment on above: Performed By: #### F T4, LIPD, TSH, CMP #### [facility] [address] [place], [place] [id number] Hemoglobin A1Con 11-30-2021 EAG 119.76 Normal [facility] Comment on above: Performed By: #### A 1C #### [facility] [address] [place], [place] [id number] HbA1c (Bld) [Mass fraction] 5.8 % Normal 4.0-6.0 [facility] Comment on above: Performed By: #### A 1C #### [facility] [address] [place], [place] [id number] Lipid Panelon 11-30-2021 Cholesterol [Mass/Vol] 228 mg/dL High 125-200 [facility] Comment on above: Result Comment: Low risk < 200mg/dL Borderline risk 201-239 mg/dl High risk > or equal to 240 Performed By: #### F T4, LIPD, TSH, CMP #### [facility] [address] [place], [place] [id number] Cholesterol in HDL [Mass/Vol] 56 mg/dL Normal >40 [facility] Comment on above: Result Comment: High Cardiovascular Risk HDL <40 mg/dL Low Cardiovascular Risk HDL > or equal to 60 mg/dl Performed By: #### F T4, LIPD, TSH, CMP #### [facility] [address] [place], [place] [id number] Cholesterol in LDL [Mass/Vol] 118 mg/dL Normal [facility] Comment on above: Result Comment: LDL ATP III CLASSIFICATION LDL less than 100 mg/dl Optimal LDL 100-129 mg/dl Near or above optimal LDL 130-159 Borderline high LDL 160-189 High LDL greater than 189 mg/dl Very High Performed By: #### F T4, LIPD, TSH, CMP #### [facility] [address] [place], [place] [id number] Cholesterol in VLDL [Mass/Vol] 54 mg/dL Normal [facility] Comment on above: Performed By: #### F T4, LIPD, TSH, CMP #### [facility] [address] [place], [place] [id number] Cholesterol.total/ Cholesterol in HDL [Mass ratio] 4 {ratio} Normal [facility] Comment on above: Performed By: #### F T4, LIPD, TSH, CMP #### [facility] [address] [place], [place] [id number] Triglyceride [Mass/Vol] 269 mg/dL High 30-150 [facility] Comment on above: Result Comment: TRIG ATPIII CLASSIFICATIONS TRIG less than 150 mg/dl Normal TRIG 150-199 mg/dl Borderline High TRIG 200-500 mg/dl High TRIG greather than 500 mg/dl Very High Performed By: #### F T4, LIPD, TSH, CMP #### [facility] [address] [place], [place] [id number] TSHon 11-30-2021 TSH 4.120 uIU/mL Normal 0.400-4.500 [facility] Comment on above: Performed By: #### F T4, LIPD, TSH, CMP #### [facility] [address] [place], [place] [id number] SCREENING MAMMOGRAM W/CASI, BILATERAL*on 09-17-2021 SCREENING MAMMOGRAM [...] VERY IMPORTANT TO YOUR HEALTH. THE CURRENT [employer] GUIDELINES RECOMMENDS ANNUAL MAMMOGRAPHY BEGINNING AT AGE 40 THIS FACILITY USES A REMINDER SYSTEM TO ENSURE ALL PATIENTS RECEIVE REMINDER NOTIFICATIONS AT THE APPROPRIATE TIME BASED ON THE RECOMMENDATIONS OF THIS EXAM. Report reported and signed by Jaspal Lund on 09/17/2021 1042 Normal [facility] Vital Signs Date Time Vital Sign Value Performing Clinician Facility 09-02-2023 14:01-0500 Body height 154.94 cm MD Gladis Fortune Work Phone: [facility] 09-02-2023 14:01-0500 Body mass index (BMI) [Ratio] 44.2 kg/m2 MD Gladis Fortune Work Phone: [facility] 09-02-2023 14:01-0500 Body weight 106.25 kg MD Gladis Fortune Work Phone: [facility] 09-02-2023 14:01-0500 Diastolic blood pressure 74 mm[Hg] MD Gladis Fortune Work Phone: [facility] 09-02-2023 14:01-0500 Heart rate 73 /min MD Gladis Fortune Work Phone: [facility] 09-02-2023 14:01-0500 Respiratory rate 18 /min MD Gladis Fortune Work Phone: [facility] 09-02-2023 14:01-0500 SaO2% (BldA) [Mass fraction] 100 % MD Gladis Fortune Work Phone: [facility] 09-02-2023 14:01-0500 Systolic blood pressure 108 mm[Hg] MD Gladis Fortune Work Phone: [facility] 09-02-2023 10:54-0500 Body mass index (BMI) [Ratio] 45.1 kg/m2 Sonia Yulia DO Work Phone: [facility] 09-02-2023 10:54-0500 Body weight 106.5 kg Sonia Yulia DO Work Phone: [facility] 09-02-2023 10:54-0500 Diastolic blood pressure 74 mm[Hg] Sonia Yulia DO Work Phone: [facility] 09-02-2023 10:54-0500 Systolic blood pressure 116 mm[Hg] Sonia Yulia DO Work Phone: [facility] 07-07-2023 11:30-0500 Body height 154.94 cm Jesu Cano Other [facility] 07-07-2023 11:30-0500 Body mass index (BMI) [Ratio] 44.04 kg/m2 Jesu Cano Other [facility] Other 07-07-2023 11:30-0500 Body weight 105.73 kg Jesu Cano Other [facility] 07-07-2023 11:30-0500 Diastolic blood pressure 87 mm[Hg] Jesu Cano Other [facility] 07-07-2023 11:30-0500 Respiratory rate 18 /min Jesu Cano Other [facility] Other 07-07-2023 11:30-0500 SaO2% (BldA) [Mass fraction] 99 % Jesu Cano Other [facility] Other 07-07-2023 11:30-0500 Systolic blood pressure 139 mm[Hg] Jesu Cano Other [facility] 06-05-2023 10:45-0500 Body height 154.94 cm Jesu Cano Other [facility] 06-05-2023 10:45-0500 Body mass index (BMI) [Ratio] 44.96 kg/m2 Jesu Cano Other [facility] Other 06-05-2023 10:45-0500 Body weight 107.96 kg Jesu Cano Other [facility] Other 06-05-2023 10:45-0500 Body weight 107.95 kg MD Gladis Fortune Work Phone: [facility] 06-05-2023 10:45-0500 Diastolic blood pressure 81 mm[Hg] Jesu Cano Other [facility] 06-05-2023 10:45-0500 Respiratory rate 18 /min Jesu Cano Other [facility] Other 06-05-2023 10:45-0500 SaO2% (BldA) [Mass fraction] 100 % Jesu Floresdiff Other [facility] Other 06-05-2023 10:45-0500 Systolic blood pressure 120 mm[Hg] Jesu Floresdiff Other [facility] 05-27-2023 10:15-0500 Body height 154.94 cm Tina Fitt Other [facility] Other 05-27-2023 10:15-0500 Body mass index (BMI) [Ratio] 45.32 kg/m2 Tina Fitt Other [facility] Other 05-27-2023 10:15-0500 Body weight 108.82 kg [employer] Other [facility] Other 04-23-2023 09:45-0400 Body height 154.94 cm Jesu Floresdiff Other [facility] Other 04-23-2023 09:45-0400 Body mass index (BMI) [Ratio] 46.04 kg/m2 Jesu Floresdiff Other [facility] Other 04-23-2023 09:45-0400 Body weight 110.54 kg Jesu Rachael Other [facility] Other 04-23-2023 09:45-0400 Diastolic blood pressure 84 mm[Hg] Jesumalaika Cano Other [facility] Other 04-23-2023 09:45-0400 Respiratory rate 18 /min Jesu Rachael Other [facility] Other 04-23-2023 09:45-0400 SaO2% (BldA) [Mass fraction] 98 % Jesu Floresdiff Other [facility] Other 04-23-2023 09:45-0400 Systolic blood pressure 146 mm[Hg] Jesu Rachael Other [facility] Other 03-25-2023 10:15-0400 Body height 154.94 cm Tina Fitt Other [facility] Other 03-25-2023 10:15-0400 Body mass index (BMI) [Ratio] 46.72 kg/m2 Tina Fitt Other [facility] Other 03-25-2023 10:15-0400 Body weight 112.18 kg Tina Fitt Other [facility] Other 03-10-2023 11:15-0400 Body height 154.94 cm Jesu Floresdiff Other [facility] Other 03-10-2023 11:15-0400 Body mass index (BMI) [Ratio] 47.21 kg/m2 Jesu Floresdiff Other [facility] Other 03-10-2023 11:15-0400 Body weight 113.35 kg Jesu Cano Other [facility] Other 03-10-2023 11:15-0400 Diastolic blood pressure 75 mm[Hg] Jesu Cano Other [facility] Other 03-10-2023 11:15-0400 Respiratory rate 18 /min Jesumalaika Cano Other [facility] Other 03-10-2023 11:15-0400 SaO2% (BldA) [Mass fraction] 100 % Jesu Cano Other [facility] Other 03-10-2023 11:15-0400 Systolic blood pressure 126 mm[Hg] Jesu Cano Other [facility] Other 11-28-2022 11:15-0400 Body height 154.94 cm [employer] Other [facility] Other 11-28-2022 11:15-0400 Body mass index (BMI) [Ratio] 47.04 kg/m2 Nadir Gusmanisle II Other [facility] Other 11-28-2022 11:15-0400 Body weight 112.95 kg Nadir Gusmanisle II Other [facility] Other 10-30-2022 12:00-0400 Body height 154.94 cm Jesu Cano Other [facility] Other 10-30-2022 12:00-0400 Body mass index (BMI) [Ratio] 48.18 kg/m2 Jesu Cano Other [facility] Other 10-30-2022 12:00-0400 Body weight 115.67 kg Jesu Cano Other [facility] Other 10-30-2022 12:00-0400 Diastolic blood pressure 79 mm[Hg] Jesu Cano Other [facility] Other 10-30-2022 12:00-0400 Respiratory rate 18 /min Jesu Cano Other [facility] Other 10-30-2022 12:00-0400 SaO2% (BldA) [Mass fraction] 100 % Jesu Cano Other [facility] Other 10-30-2022 12:00-0400 Systolic blood pressure 119 mm[Hg] Jesu Cano Other [facility] Other 09-18-2022 10:30-0500 Body height 154.94 cm Kaylen Missler Other [facility] Other 09-18-2022 10:30-0500 Body mass index (BMI) [Ratio] 48.71 kg/m2 Kaylen Missler Other [facility] Other 09-18-2022 10:30-0500 Body weight 116.94 kg Kaylen Missler Other [facility] Other 09-18-2022 10:30-0500 Diastolic blood pressure 85 mm[Hg] Kaylen Missler Other [facility] Other 09-18-2022 10:30-0500 Respiratory rate 18 /min Kaylen Missler Other [facility] Other 09-18-2022 10:30-0500 SaO2% (BldA) [Mass fraction] 99 % Kaylen Missler Other [facility] Other 09-18-2022 10:30-0500 Systolic blood pressure 124 mm[Hg] Kaylen Missler Other [facility] Other 08-08-2022 10:15-0500 Body height 154.94 cm Nadir Per II Other [facility] Other 08-08-2022 10:15-0500 Body mass index (BMI) [Ratio] 49.12 kg/m2 Nadir Gaminole II Other [facility] Other 08-08-2022 10:15-0500 Body weight 117.94 kg Nadir Gusmanisle II Other [facility] Other 07-16-2022 16:15-0500 Body height 154.94 cm Belkis Mejia Other [facility] Other 07-16-2022 16:15-0500 Body mass index (BMI) [Ratio] 49.31 kg/m2 Belkis Camposault Other [facility] Other 07-16-2022 16:15-0500 Body temperature 98.9 [degF] Belkis Camposault Other [facility] Other 07-16-2022 16:15-0500 Body weight 118.39 kg Belkis Camposault Other [facility] Other 07-16-2022 16:15-0500 Respiratory rate 18 /min Belkis Camposault Other [facility] Other 07-16-2022 16:15-0500 SaO2% (BldA) [Mass fraction] 99 % Belkis Camposault Other [facility] Other 06-12-2022 10:30-0500 Body height 154.94 cm Kaylen Gómez Other [facility] Other 06-12-2022 10:30-0500 Body mass index (BMI) [Ratio] 51.03 kg/m2 Kaylen Missler Other [facility] Other 06-12-2022 10:30-0500 Body weight 122.52 kg Kaylen Missler Other [facility] Other 06-12-2022 10:30-0500 Diastolic blood pressure 83 mm[Hg] Kaylen Missler Other [facility] Other 06-12-2022 10:30-0500 Respiratory rate 18 /min Kaylen Missler Other [facility] Other 06-12-2022 10:30-0500 SaO2% (BldA) [Mass fraction] 96 % Kaylen Missler Other [facility] Other 06-12-2022 10:30-0500 Systolic blood pressure 141 mm[Hg] Kaylen Missler Other [facility] Other 05-08-2022 10:45-0400 Body height 154.94 cm Nadir Becker II Other [facility] Other 05-08-2022 10:45-0400 Body mass index (BMI) [Ratio] 50.44 kg/m2 Nadir Becker II Other [facility] Other 05-08-2022 10:45-0400 Body weight 121.11 kg Nadir Per II Other [facility] Other Encounters Encounter Date Encounter Type Care Provider Facility Start: 09-10-2023 End: 09-10-2023 ambulatory GLADIS Le WONDERLY Not Available Start: 09-02-2023 ambulatory Jesu Cano Facili ty:[facility] Start: 09-02-2023 End: 09-02-2023 ambulatory MD Gladis Fortune Work Phone: [facility] Work Phone: Start: 09-02-2023 End: 09-02-2023 Patient encounter procedure MD Gladis Fortune [facility] Work Phone: Start: 09-02-2023 End: [...] / Non-visit MD Lynette Fortune Work Phone: [facility] Work Phone: Start: 07-17-2023 End: 07-17-2023 ambulatory GLADIS Le WONDERLY Not Available Start: 07-07-2023 End: 07-07-2023 ambulatory Nadir Albarado II [facility] Other Start: 07-07-2023 Follow-up encounter Jesu garcia [facility] Start: 07-07-2023 Registered Recurring MD Gladis aragon Work Phone: [facility] Work Phone: Start: 07-07-2023 End: 07-07-2023 Patient encounter procedure MD Gladis Fortune Work Phone: [facility] Work Phone: Start: 06-10-2023 End: 06-10-2023 ambulatory Nadir Per II Other [facility] Other Start: 06-10-2023 Telephone encounter Nadir Per II [facility] Start: 06-09-2023 End: 06-09-2023 ambulatory Nadir Becker II Other [facility] Other Start: 06-09-2023 Telephone encounter Nadir Becker II [facility] Start: 06-05-2023 End: 06-05-2023 ambulatory Jesu Cano Other [facility] Other Start: 06-05-2023 Follow-up encounter Jesu garcia [facility] Start: 06-05-2023 End: 06-05-2023 Patient encounter procedure MD Gladis Thornton Phone: [facility] Work Phone: Start: 05-27-2023 ([facility] [address] FU) [facility] F/ U [employer] Worker Tina Pascual [facility] Start: 05-27-2023 End: 05-27-2023 ambulatory Tina Pascual Other [facility] Other Start: 05-07-2023 End: 05-07-2023 ambulatory Nadir Becker II Other [facility] Other Start: 05-07-2023 Telephone encounter Nadir Per II [facility] Start: 04-23-2023 End: 04-23-2023 ambulatory Jesu Cano Other [facility] Other Start: 04-23-2023 Follow-up encounter Jesu Floresdirekha Barnes [facility] Start: 03-25-2023 ([facility] FU) [facility] F/ U [employer] Worker Tina Pascual [facility] Start: 03-25-2023 End: 03-25-2023 ambulatory Tina Pascual Other [facility] Other Start: 03-10-2023 End: 03-10-2023 ambulatory Jesu Floresdiff Other [facility] Other Start: 03-10-2023 Follow-up encounter Jesu Barnes radha [facility] Start: 02-04-2023 End: 02-04-2023 ambulatory Tina Pascual Other [facility] Other Start: 02-04-2023 IBT for Obesity subQ 15 min (Max charge 2 units) Tina Pascual [facility] Start: 02-03-2023 End: 02-03-2023 ambulatory Nadir Becker II Other [facility] Other Start: 02-03-2023 Telephone encounter Nadir Becker II [facility] Start: 11-28-2022 End: 11-28-2022 ambulatory Nadir Becker II Other [facility] Other Start: 11-28-2022 Office outpatient vi sit 25 minutes Andir Becker II [facility] Start: 11-08-2022 End: 11-08-2022 ambulatory Nadir Becker II Other [facility] Other Start: 11-08-2022 Telephone encounter Nadir Becker II [facility] Start: 10-30-2022 End: 10-30-2022 ambulatory Jesu Cano Other [facility] Other Start: 10-30-2022 Follow-up encounter eJsu garcia [facility] Start: 09-24-2022 End: 09-24-2022 ambulatory Tina Fitt Other [facility] Other Start: 09-24-2022 IBT for Obesity init ial 30 min (Max charge 2 units) Tina Wongt [facility] Start: 09-19-2022 End: 09-19-2022 ambulatory Kaylen Gómez Other [facility] Other Start: 09-19-2022 Telephone encounter Kaylen Gómez [facility] Start: 09-18-2022 ([id number]/U) Weight Management f/u Kaylen Gómez [facility] Start: 09-18-2022 End: 09-18-2022 ambulatory Kaylen Gómez Other [facility] Other Start: 08-08-2022 End: 08-08-2022 ambulatory Nadir Becker II Other [facility] Other Start: 08-08-2022 Office outpatient vi sit 25 minutes Nadir Per II [facility] Start: 07-16-2022 End: 07-16-2022 ambulatory Belkiskatlin Mejia Other [facility] Other Start: 07-16-2022 Office outpatient vi sit 15 minutes Belkis Jackie [facility] Start: 06-12-2022 End: 06-12-2022 ambulatory Kaylen Gómez Other [facility] Other Start: 06-12-2022 Nutrition therapy Kaylen Gómez Danna jallohnds [facility] Start: 05-23-2022 End: 05-23-2022 ambulatory Tina Fitt Other [facility] Other Start: 05-23-2022 Telephone encounter Tina Iqbal [facility] Start: 05-08-2022 End: 05-08-2022 ambulatory Nadir Per II Other [facility] Other Start: 05-08-2022 Office outpatient vi sit 25 minutes Nadir Becker II [facility] Start: 04-11-2022 End: 04-11-2022 ambulatory Nadir Becker II Other [facility] Other Start: 04-11-2022 Telephone encounter Nadir Becker II [facility] Start: 03-12-2022 End: 03-12-2022 ambulatory Nadir Per II Other [facility] Other Start: 03-12-2022 Office outpatient ne w 45 minutes Nadir Becker II [facility] Start: 03-12-2022 End: 03-12-2022 Patient encounter procedure MD Nadir Albarado II Work Phone: [facility] Procedures Date Procedure Procedure Detail Performing Clinician Start: 10-02-2022 Mammography [facility] natty CNM Work Phone: Start: 03-12-2022 X-ray of right knee MD Nadir Albarado II Work Phone: Start: 01-19-2015 Colonoscopy [facility] natty CNM Work Phone: Plan of Treatment Date Care Activity Detail Author Start: 01-19-2025 Screening for malign ant neoplasm of colon [facility] Start: 05-28-2024 Screening for malign ant neoplasm of cervix [facility] Start: 10-03-2023 Screening for malign ant neoplasm of breast [facility] Start: 09-08-2023 End: 09-08-2023 Professional / ancillary services management 09/08/2023 2:30 PM EST Ancillary Procedure [facility] [address] [place] [address] [place] [address] [facility] Start: 09-02-2023 End: 09-02-2024 US for US PELVIS-TRANSVAG IF INDICATED Imaging Routine Postmenopausal bleeding Uterine leiomyoma, unspecified location Expected: 09/02/2023 (Approximate), Expires: 09/02/2024 [facility] Work Phone: Comment on above: Expected: 09/02/2023 (Approximate), Expires: 09/02/2024 Start: 10-14-1984 Screening for malign ant neoplasm of cervix Pap Smear [facility] Start: 1965 Screening for malign ant neoplasm of colon [facility] Immunizations Immunization Date Immunization Notes Care Provider Fa [facility] 07-17-2023 influenza, injectabl e, quadrivalent, preservative free Ulises Floro CNM Work Phone: [facility] 04-15-2022 influenza, injectabl e, quadrivalent, preservative free Ulises Floro CNM Work Phone: [facility] 06-11-2021 influenza, injectabl e, quadrivalent, contains preservative Ulises Floro CNM Work Phone: [facility] 06-08-2020 influenza, injectabl e, quadrivalent, contains preservative Ulises Floro CNM Work Phone: [facility] 11-26-2019 tetanus and diphther ia toxoids, adsorbed, preservative free, for adult use (5 Lf of tetanus toxoid and 2 Lf of diphtheria toxoid) Ulises Floro CNM Work Phone: [facility] 05-28-2019 influenza, injectabl e, quadrivalent, preservative free Ulises Floro CNM Work Phone: [facility] 05-26-2018 influenza, injectabl e, quadrivalent, preservative free Ulises Floro CNM Work Phone: [facility] 06-04-2017 influenza, injectabl e, quadrivalent, preservative free Ulises Floro CNM Work Phone: [facility] 05-22-2016 influenza, injectabl e, quadrivalent, preservative free Ulises Floro CNM Work Phone: [facility] 05-23-2015 seasonal influenza, intradermal, preservative free Ulises Floro CNM Work Phone: [facility] 06-01-2014 influenza, injectabl e, quadrivalent, preservative free Ulises Floro CNM Work Phone: [facility] 09-18-2009 tetanus toxoid, redu isaías diphtheria toxoid, and acellular pertussis vaccine, adsorbed Ulises Floro CNM Work Phone: [facility] Payers Date Payer Category Payer Private Health Insurance [facility] [id number] 2022-Present [address] [address] [place] [address] [id number] 2022 Self-pay 2022 Unknown [id number] 1965 Unknown [id number] [id number] 1963 Unknown [id number] [id number] 1963 Unknown [id number] [id number] 1963 Unknown [id number] [id number] 1963 Unknown [id number] [id number] Unknown [id number] Unknown [id number]. 2.531 Unknown [id number] [id number] Social History Date Type Detail Facility Start: 07-17-2023 End: 08-13-2023 Sex Assigned At [facility] Work Phone: Start: 1965 Sex Assigned At Female [facility] Start: 07-17-2023 Tobacco smoking stat us NCIS Never smoked tobacco [facility] Start: 07-17-2023 [...] or more drinks on 1 occasion? Never [facility] Start: 12-23-2022 Alcohol Comment 1 or 2 drinks monthly or less; caffeine intake: 1-2 per week [facility] Start: 1965 Sex Assigned At Not on file [facility] Clinical Notes 03-12-2022 to 09-02-2023 Kiki Mak, SARINA - 09/02/2023 10:20 AM ESTTelephone Encounter - Ulises Jacobsen [facility] - 08/27/2023 1:20 PM ESTTelephone Encounter - Ulises Jacobsen, [facility] - 08/27/2023 1:20 PM EST Note [...] Dyslipidemia (CMS/HCC) 01/08/2023 Diverticulosis 01/08/2023 Essential hypertension ([facility]) 01/08/2023 Gait disturbance 01/08/2023 Glucose intolerance 01/08/2023 Grief ([facility]) 01/08/2023 Hypertriglyceridemia ([facility]) 01/08/2023 Hypothyroidism ([facility]) 01/08/2023 Migraine without status migrainosus, not intractable ([facility]) 01/08/2023 Morbid obesity ([facility]) 01/08/2023 Internal derangement of right knee 01/08/2023 Poor balance 01/08/2023 Sacroiliitis ([facility]) 01/08/2023 Resolved Ambulatory Problems Diagnosis Date Noted No Resolved Ambulatory Problems Past Medical History: Diagnosis Date HTN (hypertension) ([facility]) Irregular menstruation Lumbar pain Simple varicose veins [...] nursing note reviewed. Exam conducted with a splunk consultant present. Vitals: Estimated body mass index is [...] to return for preop. Documented by Kiki Mak LPN on behalf of: Sonia Bender DO documented in this encounter [facility] 08-27-2023 Telephone encount er Note I called and spoke with patient and she understands the meclofenamate is short term as I don't want it to interfere with her blood pressure medication. I placed referral for Dr Workman office and patient will wait to receive a call from his office. [facility] 08-27-2023 Miscellaneous Notes Formattin g of this [...] Asking if you can try something else. [facility] pharmacy please. documented in this encounter [facility] 08-27-2023 History of Presen t illness Narrative [...] in with him., documented in this encounter [facility] 08-25-2023 Telephone encount er Note Pt states whichever med you gave her for her bleeding is not helping at all. Asking if you can try something else. [facility] pharmacy please. [facility] 07-07-2023 Evaluation note Encounter Date Diagnosis Assessment Notes Jun, Prediabetes (ICD-10 - R73.03) Jun, Body mass index (BMI) of 45.0-49.9 in adult (ICD-10 - Z68.42) Jun, Mixed hyperlipidemia (ICD-10 - E78.2) Jun, Arthritis of knee (ICD-10 - M19.90) Jun, Medication management (ICD-10 - Z79.899) [facility] Other 12-18-2023 Evaluation note* Author Jesu Cano [facility] Authored September 02, 2023 2:46pm Start weight: [...] and whole fruits. Unfortunately her insurance for [employer] does not cover weight loss medications. She [...] should continue to working closely with our cable installation manager and has made some significant healthy dietary [...] to follow-up her prediabetes and mixed hypercholesterolemia. [facility] Work Phone: [phone]) 884-609311-16-2023 Evaluation note* Encounter Date Diagnosis Assessment Notes Treatment Notes Treatment Clinical Notes May, Prediabetes (ICD-10 - R73.03) May, Body mass index (BMI ) of 45.0-49.9 in adult (ICD-10 - Z68.42) May, Mixed hyperlipidemia (ICD-10 - E78.2) May, Arthritis of knee (ICD-10 - M19.90) May, Medication managemen t (ICD-10 - Z79.899) [facility] Other 11-07-2023 Evaluation note* Encounter Date Diagnosis Assessment Notes Treatment Notes Treatment Clinical Notes May, Obesity (ICD-10 - E66.9) May, BMI 45.0-49.9, adult (ICD-10 - Z68.42) [facility] Other 10-04-2023 Evaluation note* Encounter Date Diagnosis Assessment Notes Treatment Notes Treatment Clinical Notes Apr, Prediabetes (ICD-10 - R73.03) Apr, Body mass index (BMI ) of 45.0-49.9 in adult (ICD-10 - Z68.42) Apr, Mixed hyperlipidemia (ICD-10 - E78.2) Apr, Arthritis of knee (ICD-10 - M19.90) Apr, Medication managemen t (ICD-10 - Z79.899) [facility] Other 09-05-2023 Evaluation note* Encounter Date Diagnosis [...] of protein with fruits (ex: cottage cheese, tajik yogurt, 1/4 cup nuts, chicken, etc.) [facility] Other 08-21-2023 Evaluation note* Encounter Date Diagnosis Assessment Notes Treatment Notes Treatment Clinical Notes Feb, Prediabetes (ICD-10 - R73.03) Feb, Body mass index (BMI ) of 45.0-49.9 in adult (ICD-10 - Z68.42) Feb, Mixed hyperlipidemia (ICD-10 - E78.2) Feb, Arthritis of knee (ICD-10 - M19.90) Feb, Medication managemen t (ICD-10 - Z79.899) [facility] Other 07-18-2023 Evaluation note* Encounter Date Diagnosis [...] include a source of protein with breakfast [facility] Other 05-11-2023 Evaluation note* Encounter Date Diagnosis [...] that she gets a call either way. [facility] Other 04-12-2023 Evaluation note* Encounter Date Diagnosis Assessment Notes Treatment Notes Treatment Clinical Notes Oct, Prediabetes (ICD-10 - R73.03) Oct, Body mass index (BMI ) of 45.0-49.9 in adult (ICD-10 - Z68.42) Oct, Mixed hyperlipidemia (ICD-10 - E78.2) Oct, Arthritis of knee (ICD-10 - M19.90) Oct, Medication managemen t (ICD-10 - Z79.899) [facility] Other 03-07-2023 Evaluation note* Encounter Date Diagnosis [...] to reduce sodium Carbohydrate Goals:15-20 g per -68 g per meal If you are having [...] see 16 snack ideas that have protein [facility] Other 03-01-2023 Evaluation note* Encounter Date Diagnosis [...] for ambulation and was previously working at [employer] and has a goal to get back [...] Sep, Impaired fasting glucose (ICD-10 - R73.01) [facility] Other 01-19-2023 Evaluation note* Encounter Date Diagnosis [...] to proceed with a total knee replacement. [facility] Other 12-27-2022 Evaluation note* Encounter Date Diagnosis Assessment Notes Treatment Notes Treatment Clinical Notes Jun, Cough (ICD-10 - R05.9) Jun, COVID-19 (ICD-10 - U07.1) Today you tested positive for the COVID virus. This mean you need to follow all CDC quarantine guidelines found at coronavirus.[email or web address].go v. It is important to rest, increase [...] weeks for the cough to go away [facility] Other 11-23-2022 Evaluation note* Encounter Date Diagnosis [...] dietitian, appointment scheduled Highly encouraged use of plastic machine operator, patient seems opposed to this will readdress [...] the week. Encouraged to take advantage of plastic machine operator available at [facility] that can help work around limitations. Discussed [...] prevent diabetes. Consider metformin or GLP-1 agonist. [facility] Other 10-19-2022 Evaluation note* Encounter Date Diagnosis [...] referral today. 7. Follow-up in 3 months. [facility] Other 09-22-2022 Evaluation note* Encounter Date Diagnosis Assessment Notes Treatment Notes Treatment Clinical Notes Mar, Acute pain of right knee (ICD-10 - M25.561) [facility] Other 08-23-2022 Evaluation note* Encounter Date Diagnosis [...] steroid injection 6. Follow up 2 months [facility] Other Evaluation noteNo assessment information available [facility] Work Phone: Evaluation noteNo InformationNortCommunity [facility] Other Evaluation note* Diagnosis DUB (dysfunctional uterine bleeding)- Primary Other disorder of menstruation and other abnormal bleeding from female genital tract documented in this encounter [facility] Diagnosis DUB (dysfunctional uterine bleeding)- Primary Other disorder of menstruation and other abnormal bleeding from female genital tract documented in this encounter [facility]* Diagnosis DUB (dysfunctional uterine bleeding) Other disorder of menstruation and other abnormal bleeding from female genital tract Postmenopausal bleeding Uterine leiomyoma, unspecified location [facility] - [facility]orted* Type Description Date Medical History HTN Medical History hyperthyroidism Medical History seasonal allergies [facility] Other History general Narrative - Reported* Type Description Date Medical History HTN Medical History hyperthyroidism Medical History seasonal allergies Medical History Arthritis of right knee Surgical History Tendonitis of right elbow Surgical History Left knee cap repair Surgical History [place] teeth [facility] Other Hiskflz general Narrative - Reported* Type Description Date Medical History HTN Medical History hyperthyroidism Medical History seasonal allergies Medical History Arthritis of right knee Medical History Covid 2022 Surgical History Tendonitis of right elbow Surgical History Left knee cap repair Surgical History [place] teeth [facility] Other Summary Purpose Family History No Family [...] Gynecology Diagnoses DUB (dysfunctional uterine bleeding) Procedures LA OFFICE/OUTPATIENT NEW HIGH MDM 60 MINUTES Ulises Jacobsen CNM [address] [place] [address] Sonia Bender, [address] [place] [address] Referral ID Status Reason Start Date Expiration Date Visits Requested Visits Authorized [id number] Pending Review Specialty Services Required 08/27/2023 02/23/2024 1 1 Additional Source Comments INFORMATION SOURCE (unrecogn ized section and content) DATE CREATED AUTHOR 12/14/2021 [facility] dical Specialist DATE CREATED AUTHOR AUTHOR'S ORGANIZ ATION 09/05/2023 [facility] DATE CREATED AUTHOR AUTHOR'S ORGANIZ ATION 09/17/2023 [facility] dical Specialists EPIC REASON FOR VISIT (unrecogniz ed section and content) Reason Comments Vaginal Bleeding Care Teams (unrecognized sec tion and content) Team Status: Inactive Member Role Status Dates Nadir Albarado II, MD Attending Provider Active PHYSICIAN NO FAMILY Primary Care Provider Active Team Status: Active Member Role Status Dates PHYSICIAN NO FAMILY Primary Care Provider Active Rn Infusion Relationship Specialty Start Date End Date Gladis Fortune MD [address], [place] [id number] PCP - General Family Medicine 01/15/23 Rn Infusion Relationship Specialty Start Date End Date Gladis Fortune MD [address] [facility] [place] [address] PCP - General Family Medicine 01/15/23 Rn Infusion Relationship Specialty Start Date End Date Glaids Fortune MD [address] [facility] [place] [address] PCP - General Family Medicine 01/15/23 Team [...] September 02, 2023 End: September 02, 2023 Rn Infusion Relationship Specialty Start Date End Date Gladis Fortune MD [address] [facility] [place] [address] PCP - General Family Medicine 01/15/23 Goals [...] BE BASED ON THE PRIMARY CLINICAL RECORDS. [facility]. provides no warranty or guarantee of the accuracy or completeness of information in this document.
[2023-10-06 06:34] LABS: Basophils Absolute Auto 0.1 10^3/uL (0.0-0.1); Basophils Percent Auto 0.6 % (0.2-2.0); Eosinophils Absolute Auto 0.4 10^3/uL (0.0-0.7); Eosinophils Percent Auto 3.9 % (0.9-7.0); Hematocrit 36.7 % (36.0-48.0); Hemoglobin 11.7 g/dL (12.0-16.0); Immature Granulocytes Abs Auto 0.06 10^3/uL (0.00-0.03); Immature Granulocytes Pct Auto 0.6 % (0.0-0.5); Lymphocytes Absolute Auto 2.9 10^3/uL (1.2-3.8); Lymphocytes Percent Auto 26.4 % (20.5-60.0); Mean Corpuscular HGB Conc 31.9 g/dL (29.9-35.2); Mean Corpuscular Hemoglobin 30.3 pg (26.7-34.0); Mean Corpuscular Volume 95.1 fL (81.0-99.0); Mean Platelet Volume 9.9 fL (9.5-13.5); Monocytes Absolute Auto 0.5 10^3/uL (0.3-0.8); Monocytes Percent Auto 4.5 % (1.7-12.0); Neutrophils Absolute Auto 6.9 10^3/uL (1.4-6.5); Platelet Count 240 10^3/uL (150-450); Red Blood Count 3.86 10^6/uL (4.20-5.40); Red Cell Distribution Width 12.9 % (11.0-15.0); White Blood Count 10.8 10^3/uL (4.0-11.0)
[2023-10-06 06:51] VITALS: BP 118/79; PULSE 81; RESP 16; TEMP 36.6; O2SAT 98
[2023-10-06 06:51] LABS: Glucometer 120 mg/dL (74-106)
[2023-10-06] MEDS: LACTATED RINGER'S SOLUTION 1,000 ML 50 ML IV (07:06)
--- NOTE | 2023-10-06 08:10 | PM.ONB ---
Brief Operative Note Date of procedure: 10/06/23 Pre-op diagnosis: pmb, uterine fibroid Post-op diagnosis: same as pre-op Procedure: NAME OF PROCEDURE: [d&c hysteroscopy] PROCEDURE: The patient was taken back to the Operating Room where she was prepped and draped in normal sterile fashion after being placed under general anesthesia without difficulty. She was also placed in the dorsal lithotomy position. A weighted speculum was placed in the patient?s vagina. The anterior lip of the cervix was identified and grasped with a single tooth tenaculum. The patient?s uterus was then sounded roughly to [9? ] cm. The patient was then gently dilated using Hegar dilators. The hysteroscope was passed through the patient?s cervix into the uterus. Both ostia were identified. atrophic appearing endometrium. No gross evidence of polyps, fibroids or malignancy. The hysteroscope was then removed from the patient's uterus.? At that point, gentle curettage was performed until a gritty texture was noted. The endometrial curettings were sent out to pathology.? The single tooth tenaculum was then removed from the patient's anterior lip of the cervix where excellent hemostasis was noted. Anesthesia: TRISTEN Surgeon: Zeke Bender Estimated blood loss (mL): 5 Pathology: other (endometrial currettings) Condition: stable Disposition: PACU Urinary Catheter Management Urinary Catheter Management Straight: Cath placed during this visit: no
[2023-10-06 08:16] VITALS: BP 106/77; PULSE 75; RESP 14; TEMP 36.6; O2SAT 95
[2023-10-06 08:31] VITALS: BP 136/91; PULSE 72; RESP 16; O2SAT 97
--- NOTE | 2023-10-06 08:39 | PC.NURSE ---
BILATERAL UPPER LEG PAIN; ANESTHESIA NOTIFIED AND NO ORDERS RECEIVED
--- NOTE | 2023-10-06 09:20 | PC.NURSE ---
Peripad dry; up to bathroom and voids clear yellow without difficulty
== END 2023-10-06 09:20 | disposition home or self-care (01) ==
PROVIDERS: PCP Family Medicine; Visit Provider Obstetrics & Gynecology
PROC: (CPT 952; principal; 2023-10-06 07:30)
DX: N95.0 Postmenopausal bleeding (principal); D25.9 Leiomyoma of uterus, unspecified; I10 Essential (primary) hypertension; N84.1 Polyp of cervix uteri; M19.90 Unspecified osteoarthritis, unspecified site; J30.2 Other seasonal allergic rhinitis; E78.00 Pure hypercholesterolemia, unspecified; R12 Heartburn; E03.9 Hypothyroidism, unspecified; Z79.84 Long term (current) use of oral hypoglycemic drugs; E66.01 Morbid (severe) obesity due to excess calories; R26.9 Unspecified abnormalities of gait and mobility; K57.90 Diverticulosis of intestine, part unspecified, without perforation or abscess without bleeding; Z68.42 Body mass index [BMI] 45.0-49.9, adult
CPT/HCPCS: 58558; 36415; 82948; 85025; 88305; 99999; J1094; J2704